=== PATIENT | female | born 1965 | race Caucasian/White ===

== ENCOUNTER 2024-05-07 14:09 | Emergency (ER) | payer OTHER, SELFPAY ==
[2024-05-07 14:10] VITALS: BP 173/86; PULSE 95; RESP 18; TEMP 36.9; O2SAT 96; BMI 49.5
--- NOTE | 2024-05-07 14:16 | EKG12_ITS ---
Test Reason : SOB Blood Pressure : */* mmHG Vent. Rate : 92 BPM Atrial Rate : 92 BPM P-R Int : 182 ms QRS Dur : 160 ms QT Int : 416 ms P-R-T Axes : 37 -24 137 degrees QTcB Int : 514 ms Normal sinus rhythm Non-specific intra-ventricular conduction block Minimal voltage criteria for LVH, may be normal variant ( Tc product ) Cannot rule out Lateral infarct , age undetermined Cannot rule out Inferior infarct , age undetermined Abnormal ECG Confirmed by Carlos Armenta ([id number]), purchase request editor ARNULFO HERNANDEZ ([id number]) on 05/08/2024 1:22:37 PM Referred By: Dean Jara Confirmed By: Carlos Armenta
[2024-05-07 14:36] LABS: Absolute Lymphocyte Count 1.73 X10^3/uL (0.83-4.51); Basophil% 0.8 % (0-1); Eosinophil# 0.21 X10^3/uL; Eosinophils% 1.8 % (0-5); Hematocrit 46.3 % (37-47); Hemoglobin 14.7 g/dL (12.0-15.0); Lymphocyte # 1.73 X10^3/ul (0.83-4.51); Lymphocyte % 14.5 % (19-41); Mean Corp Hgb Conc 31.7 g/dL (32-36); Mean Corpuscular Hgb 29.8 pg (27.0-32.0); Mean Corpuscular Volume 93.9 fL (81-99); Monocyte# 0.86 X10^3/uL; Monocyte% 7.2 % (0-10); NRBC Flagged by Analyzer 0 % (0-5); Neutrophil # 8.98 X10^3/uL (2.7-7.7); Neutrophil % 75.3 % (47-70); POSITIVE COUNT YES; RBC Distribution Width CV 14.3 % (11.6-14.6); RBC Distribution Width SD 48.7 fl (35.1-43.9); Red Blood Count 4.93 M/mm3 (4.2-5.4); White Blood Count 11.9 K/mm3 (4.4-11.0)
--- NOTE | 2024-05-07 14:50 | RAD_ITS ---
STUDY: X-RAY CHEST REASON FOR EXAM: Female, 58 years old. Shortness of breath TECHNIQUE: Single AP portable view of the chest. COMPARISON: None. FINDINGS: Lungs are expanded with superimposed interstitial edema and small pleural effusions. Findings due to either pulmonary vascular congestion or inflammatory process. Follow-up recommended to assure complete resolution Normal size heart. Normal mediastinum and kasia. Normal visualized pulmonary arteries. Normal visualized aortic arch and descending thoracic aorta. There are diffuse degenerative changes of the visualized thoracic spine. Normal visualized ribs, clavicles, and shoulders. There is no demonstrated abnormality of the visualized soft tissue structures of the upper abdomen. RAD/Chest 1 View (Portable) IMPRESSION: Interstitial edema in the lower lung lee with small bilateral pleural effusions suggest pulmonary vascular congestion but findings could also be due to a diffuse inflammatory process. Follow-up recommended to assure resolution Electronically Signed: Benji Pappas MD at 15:01 EST ,
[2024-05-07 14:54] LABS: Anion Gap 4 (5-15); BUN 16 mg/dL (7-18); BUN/Creat Ratio 14.8 RATIO (10-20); Chloride 110 mmol/L (98-107); Creatinine, Serum 1.08 mg/dL (0.55-1.02); EST Glomerular Filtration Rate 55 mL/min (>60); Est Glom Filt Rate - Afr Amer 66 mL/min (>60); Estimated Creatinine Clearance 74.51 ml/min; Glucose 103 mg/dL (74-106); Potassium 4.5 mmol/L (3.5-5.1); Sodium Level 137 mmol/L (136-145); Troponin-I HS 37 pg/mL (3.0-54.0)
[2024-05-07 15:05] LABS: Differential Indicated SCAN CRITERIA MET
[2024-05-07 15:06] LABS: Platelet Estimate ADEQUATE (ADEQ)
[2024-05-07 15:42] VITALS: O2SAT 98
--- NOTE | 2024-05-07 15:45 | EDS_ITS ---
HPI History of Present Illness Chief Complaint: Shortness of Breath Informant: patient Narrative Narrative: 58-year-old female has been having dyspnea with exertion for the past 4 to 5 weeks. It was worse last night with lying down, so she went to urgent care [facility] to be evaluated for this for the first time, and they sent her to the ER out of concern she may be having congestive heart failure. She does not have a history of that that she knows of. With walking up stairs and light exertion she has been having dyspnea without chest discomfort, it is better with resting. She has had no presyncope or syncope. No palpitations, diaphoresis, GI symptoms, no cough or fevers. She states that the [facility] they were concerned about her having edema in her legs but she has not been noticing that. No known history of heart or lung problems she takes no prescriptions, she used to see Dr. Stinson but he apparently retired 3 to 4 months ago and she does not have a new PCP yet. PFSH PFS Medical History no medical history no medical history Home Medications ?Medication ?Instructions ?Recorded ?Last Taken ?Type carvedilol 6.25 mg tablet (Coreg) 6.25 mg PO BID #60 tabs 05/07/24 Unknown Rx furosemide 40 mg tablet 40 mg PO .qam #30 tabs 05/07/24 Unknown Rx losartan 25 mg tablet 25 mg PO QHS #30 tabs 05/07/24 Unknown Rx Allergy/AdvReac Type Severity Reaction Status Date / Time No Known Allergies Allergy Verified 05/07/24 14:10 Social History Smoking Status: Never smoker ROS ROS ED Constitutional Constitutional ED: Denies chills or fever(s) Eyes Eyes: Denies change in vision or diplopia ENT ENT ED: Denies rhinorrhea or sore throat Cardiovascular Cardiovascular: Reports as per HPI, leg edema and orthopnea; Denies chest pain, lightheadedness, palpitations, radiating jaw, neck or arm pain or syncope Respiratory/Chest Respiratory/Chest: Reports dyspnea on exertion and orthopnea; Denies cough Gastrointestinal Gastrointestinal: Denies abdominal pain, diarrhea, nausea or vomiting Genitourinary Genitourinary ED: Denies dysuria or hematuria Musculoskeletal Musculoskeletal: Denies back pain or neck pain Integumentary Denies abscess or rash Neurologic Neurologic: Denies headache(s), paresthesias or weakness Psychiatric Psychiatric: Denies anxiety or suicidal thoughts EXAM Physical Exam Const Vital Signs: 05/07/24 14:10 05/07/24 15:42 05/07/24 15:42 Temperature 98.5 F Temperature Source Oral Pulse Rate 95 Respiratory Rate 18 Blood Pressure 173/86 H Blood Pressure Mean 115 Pulse Ox 96 98 98 Oxygen Delivery Method Room Air Room Air Room Air 05/07/24 16:10 05/07/24 16:15 Temperature Temperature Source Pulse Rate 83 84 Respiratory Rate 17 28 H Blood Pressure 152/76 H 152/76 H Blood Pressure Mean 101 101 Pulse Ox 94 94 Oxygen Delivery Method Room Air Room Air Positive well nourished, well developed and obese General Appearance ED: well developed and NAD Nutritional Appearance: obese HEENT Reports moist mucous membranes normocephalic and atraumatic Eyes PERRL and EOMs intact bilaterally Neck full ROM and supple Resp normal respiratory effort Resp Narrative: Mild bibasilar rhonchi otherwise clear Effort and Inspection: able to speak in complete sentences Cardio regular rate, regular rhythm and no murmurs Rate: Negative for bradycardia or tachycardic GI non-tender and non-distended Auscultation: normoactive bowel sounds Palpation: soft Back/Spine no CVA tenderness General Back: other FROM Extremity normal to inspection General Extremety ED: Yes edema; Negative for pulses abnormal or tenderness General Extremity: edema bilateral lower extremity Details: mild (To proximal tibia bilaterally, symmetric no signs of infection or tenderness); Negative for pulses abnormal Neuro oriented x3, CN's II-XII intact bilaterally and no sensory deficits noted Sensorium / Orientation: awake and alert Motor Exam: strength 5/5 throughout Skin no rashes or lesions noted and no wounds MDM MDM MDM Narrative Medical decision making narrative: Two-view chest x-ray my interpretation is consistent with some mild pulmonary edema, vascular congestion. Radiology in agreement. The rest of her workup is consistent with acute congestive heart failure, there is no evidence of acute coronary syndrome, she does have a left middle branch block with no evidence of an old EKG here. I discussed all this with cardiology because the patient prefers to go home if possible rather than be admitted. Discussed with Dr. Armenta will try to get her into the office soon, I think that is reasonable since she does not have a PCP right now. Family is comfortable with that, he recommend starting her on losartan, Lasix, carvedilol, so she is written prescriptions for those. She is doing better after the Lasix and her blood pressure is down. Lab Data Attestation: I reviewed the patient's lab results. Labs: Laboratory Results - last 24 hr 05/07/24 14:25 WBC 11.9 H RBC 4.93 Hgb 14.7 Hct 46.3 MCV 93.9 MCH 29.8 MCHC 31.7 L RDW Std Deviation 48.7 H RDW Coeff of Morris 14.3 Plt Count TNP MPV 11.0 Immature Gran % (Auto) 0.400 Neut % (Auto) 75.3 H Lymph % (Auto) 14.5 L Angelina % (Auto) 7.2 Eos % (Auto) 1.8 Baso % (Auto) 0.8 Absolute Neuts (auto) 9.0 H Absolute Lymphs (auto) 1.73 Nucleated RBC % 0 Platelet Estimate ADEQUATE Sodium 137 Potassium 4.5 Chloride 110 H Carbon Dioxide 23.0 Anion Gap 4 L BUN 16 Creatinine 1.08 H Estim Creat Clear Calc 74.51 Est GFR (MDRD) Af Amer 66 Est GFR (MDRD) Non-Af 55 L BUN/Creatinine Ratio 14.8 Glucose 103 Calcium 9.0 Troponin I High Sens 37 B-Natriuretic Peptide 206.3 H Radiography Diagnostic Testing: Clinical Impression(s) from Imaging Studies Chest X-Ray 05/07/24 14:50 IMPRESSION: Interstitial edema in the lower lung lee with small bilateral pleural effusions suggest pulmonary vascular congestion but findings could also be due to a diffuse inflammatory process. 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 Discharge Plan Triage Chief Complaint: Shortness of Breath ED Provider: Daen Jara Dx/Rx/DC Orders Clinical Impression: Acute CHF Instructions: ED Heart Failure, Congestive (CHF) Prescriptions: New carvedilol [Coreg] 6.25 mg tablet 6.25 mg PO BID Qty: 60 0RF Rx Instructions: must administer with a meal/food losartan 25 mg tablet 25 mg PO QHS Qty: 30 0RF furosemide 40 mg tablet 40 mg PO .qam Qty: 30 0RF Primary Care Provider: NOT,DEFINED Referrals: Carlos Armenta MD [Med Staff - Active Staff] - As soon as possible () Activity Restrictions/Additional Instructions: Call for appointment next week if you do not hear anything from the office by tomorrow or the next morning. Print Language: Hungarian Disposition Disposition: Home, Self Care
[2024-05-07] MEDS: Furosemide 40 MG/4 ML Vial IV (15:53)
[2024-05-07 16:10] VITALS: BP 152/76; PULSE 83; RESP 17; O2SAT 94
[2024-05-07 16:15] VITALS: BP 152/76; PULSE 84; RESP 28; O2SAT 94
[2024-05-07 16:50] LABS: BNP,B-Type NATRIURETIC PEPTIDE 206.3 pg/mL (0-100)
[2024-05-07 17:17] VITALS: O2SAT 94
== END 2024-05-07 17:33 | disposition home or self-care (01) ==
PROVIDERS: Emergency Provider Emergency Medicine; Referring Provider Emergency Medicine; Visit Provider Emergency Medicine
DX: R06.02 Shortness of breath (principal); I50.9 Heart failure, unspecified
CPT/HCPCS: 71045; 80048; 83880; 84484; 85025; 93005; 94760; 96374; 99282; A4216; J1940

== ENCOUNTER → 2024-05-10 | Outpatient (CLI) | payer SELFPAY, OTHER ==
--- NOTE | 2024-05-10 08:45 | ECHOD_ITS ---
Reason For Study: SHORTNESS OF BREATH Procedure This was a 2D Doppler, Color Flow transthoracic echocardiogram. Myocardial strain analysis was performed in this exam to aid in the assessment of cardiac function. Exam performed in department. Left Ventricle Mildly dilated left ventricle. The global longitudinal strain = -10.2% (abnormal). The estimated ejection fraction is 25 %. Stage 2 diastolic dysfunction. There is severe global hypokinesis of the left ventricle. Right Ventricle Normal RV size. Normal systolic function. Atria The left atrium is mildly enlarged. Normal right atrium. No doppler evidence for ASD. Mitral Valve There is no mitral valve stenosis. Mild-Moderate (1-2+) mitral valve insufficiency. Tricuspid Valve There is no tricuspid stenosis. Trivial tricuspid valve insufficiency. Unable to estimate RV systolic pressure due to insufficient tricuspid regurgitant envelope. Aortic Valve Trisinus/trileaflet aortic valve. There is no aortic stenosis. No aortic valve insufficiency. Pulmonic Valve There is no pulmonic valvular stenosis. Trivial pulmonic valve insufficiency. Great Vessels Normal aortic root. Pericardium/Pleural No pericardial effusion. MMode/2D Measurements & Calculations LVIDd: 6.5 cm IVSd: 1.1 cm LVOT diam: 2.2 cm LVIDs: 5.4 cm LVPWd: 1.1 cm LVOT area: 3.8 cm2 RVDd: 4.3 cm FS: 17.0 % asc Aorta Diam: 3.5 cm LAV(MOD-bp): 84.3 ml EDV(MOD-sp4): 157.2 ml LAV(MOD-bp) Indexed: 37.0 ml/m2 ESV(MOD-sp4): 113.7 ml LAV(MOD-sp2): 116.7 ml EF(MOD-sp4): 27.6 % LAV(MOD-sp4): 60.5 ml EDV(MOD-sp2): 159.1 ml SV(MOD-sp4): 43.4 ml SV(MOD-sp2): 39.8 ml ESV(MOD-sp2): 119.3 ml EF(MOD-sp2): 25.0 % SI(MOD-sp4): 19.0 ml/m2 SI(MOD-sp2): 17.5 ml/m2 Ao sinus diam: 3.[address] Junction: 2.8 cm LA A4 area: 20.8 cm2 LA dimension(2D): 4.3 cm TAPSE: 2.0 cm RA A4 area: 18.2 cm2 Time Measurements MV dec time: 0.19 sec Doppler Measurements & Calculations MV E max neal: 89.6 cm/sec Lat Peak E' Neal: 5.3 cm/sec Med Peak E' Neal: 6.3 cm/sec MV A max neal: 101.8 cm/sec E/E' lat: 17.0 E/E' med: 14.2 MV E/A: 0.88 MV dec slope: 480.9 cm/sec2 Ao V2 max: 119.2 cm/sec LV V1 max: 105.7 cm/sec Ao max P.7 mmHg LV V1 max P.5 mmHg Ao V2 mean: 86.1 cm/sec LV V1 mean P.9 mmHg Ao mean P.3 mmHg LV V1 mean: 83.5 cm/sec Ao V2 VTI: 26.3 cm LV V1 VTI: 20.3 cm AV (velocity ratio): 0.77 ABRAHAN(I,D): 2.9 cm2 ABRAHAN(V,D): 3.3 cm2 SV(LVOT): 76.1 ml PA V2 max: 70.1 cm/sec ECHO/Echo Complete Interpretation Summary The estimated ejection fraction is 25 %. Stage 2 diastolic dysfunction. There is severe global hypokinesis of the left ventricle. The left atrium is mildly enlarged. Mild-Moderate (1-2+) mitral valve insufficiency. Ordering Physician: Dorothy Trejo Referring Physician: HUMAIRA GRULLON Performed By: Fany Marcos RDCS
== END | disposition home or self-care (01) ==
LOC: CVS 08:44
PROVIDERS: PCP Physician Assistant; Referring Provider Physician Assistant Medical; Visit Provider Physician Assistant Medical
DX: I50.9 Heart failure, unspecified (principal); I51.7 Cardiomegaly
CPT/HCPCS: 93306

== ENCOUNTER → 2024-05-14 | Outpatient (CLI) | payer OTHER, SELFPAY ==
[2024-05-14 14:30] LABS: Anion Gap 4 (5-15); BUN 22 mg/dL (7-18); BUN/Creat Ratio 17.5 RATIO (10-20); Chloride 104 mmol/L (98-107); Creatinine, Serum 1.26 mg/dL (0.55-1.02); EST Glomerular Filtration Rate 46 mL/min (>60); Est Glom Filt Rate - Afr Amer 56 mL/min (>60); Glucose 107 mg/dL (74-106); Sodium Level 140 mmol/L (136-145)
[2024-05-14 14:31] LABS: BNP,B-Type NATRIURETIC PEPTIDE 91.4 pg/mL (0-100)
== END | disposition home or self-care (01) ==
LOC: LAB 13:38
PROVIDERS: PCP Physician Assistant; Referring Provider Internal Medicine Cardiovascular Disease; Visit Provider Internal Medicine Cardiovascular Disease
DX: I50.9 Heart failure, unspecified (principal)

== ENCOUNTER → 2024-06-21 | Outpatient (CLI) | payer OTHER, SELFPAY ==
[2024-06-21 09:25] LABS: Anion Gap 4 (5-15); BUN 21 mg/dL (7-18); BUN/Creat Ratio 24.8 RATIO (10-20); Calcium,Total 9.4 mg/dL (8.5-10.1); Chloride 108 mmol/L (98-107); Cholesterol 173 mg/dL (200); Creatinine, Serum 0.85 mg/dL (0.55-1.02); EST Glomerular Filtration Rate 73 mL/min (>60); Est Glom Filt Rate - Afr Amer 88 mL/min (>60); Glucose 90 mg/dL (74-106); High Density Lipoprotein 50 mg/dL; Potassium 4.3 mmol/L (3.5-5.1); Sodium Level 140 mmol/L (136-145); Triglycerides 114 mg/dL; Very Low Density Lipoprotein 23 mg/dL (5-40)
== END | disposition home or self-care (01) ==
LOC: LAB 07:54
PROVIDERS: PCP Physician Assistant; Referring Provider Internal Medicine Cardiovascular Disease; Visit Provider Internal Medicine Cardiovascular Disease
DX: I50.9 Heart failure, unspecified (principal)
CPT/HCPCS: 36415; 80048; 80061

== ENCOUNTER → 2024-08-23 | Outpatient (CLI) | payer SELFPAY, OTHER ==
--- NOTE | 2024-08-23 07:48 | ECHOL_ITS ---
Reason For Study Reason For Study: Assess LV function Procedure This was a limited 2D transthoracic echocardiogram. Exam performed in department. Left Ventricle Mildly dilated left ventricle. The left ventricular ejection fraction is 45 %. There is mild to moderate global hypokinesis of the left ventricle. Right Ventricle Normal RV size. Atria Normal left atrium. Normal right atrium. Mitral Valve Normal mitral valve. Tricuspid Valve Normal tricuspid valve. Aortic Valve Trisinus/trileaflet aortic valve. Pulmonic Valve Normal pulmonic valve. Great Vessels Normal aortic root. Pericardium/Pleural No pericardial effusion. MMode/2D Measurements & Calculations LVIDd: 6.2 cm IVSd: 1.0 cm LAV(MOD- bp): 69.5 ml LVIDs: 4.6 cm LVPWd: 1.0 cm LAV(MOD- bp) Indexed: 30.8 ml/m2 RVDd: 3.6 cm FS: 25.4 % LAV(MOD- sp2): 56.8 ml LAV(MOD- sp4): 77.3 ml SV(MOD- sp4): 64.2 ml LVAd ap4: 41.3 cm2 LVAd ap2: 45.4 cm2 LVLd ap4: 9.3 cm LVLd ap2: 9.5 cm SI(MOD- sp4): 28.5 ml/m2 EDV(MOD-sp4): 155.5 ml EDV(MOD-sp2): 182.7 ml EDV(sp4-el): 154.7 ml EDV(sp2-el): 185.0 ml LVAs ap4: 30.6 cm2 LVAs ap2: 32.4 cm2 LVLs ap4: 8.6 cm LVLs ap2: 8.7 cm ESV(MOD-sp4): 91.3 ml ESV(MOD-sp2): 98.6 ml ESV(sp4-el): 91.9 ml ESV(sp2-el): 102.0 ml EF(MOD-sp4): 41.3 % EF(MOD-sp2): 46.0 % EF(sp4-el): 40.6 % SV(MOD-sp2): 84.1 ml SV(sp4-el): 62.8 ml LA A4 area: 22.0 cm2 SI(MOD-sp2): 37.3 ml/m2 LA dimension(2D): 3.8 cm RA A4 area: 15.0 cm2 ECHO/Echo, Limited Study Interpretation Summary Mildly dilated left ventricle. The left ventricular ejection fraction is 45 %. There is mild to moderate global hypokinesis of the left ventricle. Compared to previous study, the left ventricular systolic function has improved .. Ordering Physician: Carlos Amrenta Referring Physician: Washington Vincent Performed By: Glo Lora RDCS
[2024-08-23 12:13] LABS: Anion Gap 10 (5-15); BUN 17 mg/dL (4-19); Calcium,Total 8.6 mg/dL (7.6-11.0); Carbon Dioxide 23.9 mmol/L (21.0-32.0); Chloride 104 mmol/L (98-108); Creatinine, Serum 0.93 mg/dL (0.70-1.20); EST Glomerular Filtration Rate 70 (>60); Glucose 91 mg/dL (70-99); Potassium 4.6 mmol/L (3.3-5.1); Sodium Level 138 mmol/L (133-145)
== END | disposition home or self-care (01) ==
PROVIDERS: PCP Physician Assistant; Referring Provider Internal Medicine Cardiovascular Disease; Visit Provider Internal Medicine Cardiovascular Disease
DX: I50.41 Acute combined systolic (congestive) and diastolic (congestive) heart failure (principal)
CPT/HCPCS: 36415; 80048; 93308

== ENCOUNTER 2025-01-03 06:51 | Outpatient (CLI) | payer SELFPAY, OTHER ==
--- OUTSIDE RECORDS SUMMARY | 2025-01-03 06:54 | XMS RPT_ITS | CCD ---
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 Name Role Phone Mitchel MARTINES, Luke E Unavailable Mitchel PA-C, Luke E Unavailable Unavailable Unavailable Edwar Adams LPN Unavailable Unavailable UBALDO Attending Unavailable Lissy Snyder LPN Unavailable NATALIYA GRULLONKE E Consulting Unavailable SHAMIR PORTILLO MD Admitting Unavailable SHAMIR PORTILLO MD Primary Care Unavailable SHAMIR PORTILLO MD Attending Unavailable PROVIDER, UNKNOWN Consulting Unavailable NIRMALA ARMENTA MD Attending Unavailable MITCHEL, LUKE E Consulting Unavailable NIRMALA ARMENTA MD Admitting Unavailable NIRMALA ARMENTA MD Primary Care Unavailable PROVIDER, UNKNOWN Consulting Unavailable Mei Cali MA Unavailable Unavailable Washington Duarte Primary Care Provider Dr. Nirmala Armenta MD Attending Provider Dr. Nirmala Armenta MD Referring Provider Washington Duarte Primary Care Provider Dr. Ben Salter MD Attending Provider Washington Duarte Referring Provider Dorothy Nettles Attending Provider Mitchel, Luke Referring Unavailable Mitchel, Luke Primary Care Unavailable Nirmala Armenta Attending Unavailable Mitchel, Luke Primary Care Unavailable Ben Salter Attending Unavailable Saturnino Salinas Attending Unavailable Mitchel, Luke Referring Unavailable Mitchel, Luke Primary Care Unavailable Nirmala Armenta Attending Unavailable Mitchel, Luke Referring Unavailable Dorothy Nettles Attending Unavail able Mitchel, Luke Primary Care Unavailable Mitchel, Luke Primary Care Unavailable Nirmala Armenta Referring Unavailable Nirmala Armenta Attending Unavailable Dorothy Nettles Attending Unavail able Dorothy Nettles Referring Unavail able Mitchel, Luke Primary Care Unavailable NOT, DEFINED Referring Unavailable Nirmala Armenta Attending Unavailable Mitchel, Luke Primary Care Unavailable Mitchel, Luke Primary Care Unavailable Rickie Sanford Attending Unavailabl e Mitchel, Luke Primary Care Unavailable Nirmala Armenta Attending Unavailable Nirmala Armenta Referring Unavailable Nirmala Armenta Attending Unavailable Nirmala Armenta Referring Unavailable Mitchel, Luke Primary Care Unavailable Mitchel, Luke Primary Care Unavailable Dorothy Nettles Attending Unavail able Dorothy Nettles Referring Unavail Dean Roldan Attending Unavailable Dean Jara Referring Unavailable NOT, DEFINED Primary Care Unavailable Medications Current Medications Medication Drug Class(es) Dates Sig (Normalized) Sig (Original) benzonatate 100 mg oral capsule (2 sources) Non-narcotic Antitussive Start: 08-03-2024 benzonatate 100 mg capsule ; 1 (one) capsule TID PRN cough for 0 days Quantity: 30 {Capsule} Refills: 0 Ordered: 03-Aug-2024 BOBBI Grullon Start: 03-Aug-2024 carvedilol 12.5 mg oral tablet (9 sources) alpha-Adrenergic Naima, beta-Adrenergic Naima Start: 05-14-2024 take 1 tablet by mouth twice daily at mealtime Carvedilol 12.5 mg tablet Active 12.5 mg PO TWICE A DAY 180 May 14, 2024 2:11pm must administer with a meal/food Start: 05-07-2024 End: 05-14-2024 take 1 tablet by mouth twice daily at mealtime Carvedilol (Coreg) 6.25 mg tablet Discontinued 6.25 mg PO TWICE A DAY 60 0 May 07, 2024 1:00am May 14, 2024 2:13pm must administer with a meal/food furosemide 20 mg oral tablet (11 sources) Loop Diuretic Start: 06-21-2024 End: 08-23-2024 take 1 tablet by mouth once daily in the morning Furosemide 20 mg tablet Active 20 mg PO EVERY MORNING August 23, 2024 9:48am Start: 06-21-2024 End: 06-21-2024 Furosemide 40 mg tablet Disc ontinued 20 mg PO .qam June 21, 2024 9:31am June 21, 2024 9:50am Start: 05-07-2024 End: 06-21-2024 take 1 tablet by mouth once daily in the morning Furosemide 40 mg tablet Discontinued 40 mg PO .qam 30 May 07, 2024 1:00am June 21, 2024 9:32am losartan potassium 100 mg oral tablet (10 sources) Angiotensin 2 Receptor Naima Start: 06-21-2024 take 1 tablet by mouth once daily Losartan 100 mg tablet Active 100 mg PO daily 90 June 21, 2024 1:00am Start: 05-14-2024 End: 06-21-2024 take 1 tablet by mouth at bedtime Losartan 50 mg tablet Discontinued 50 mg PO AT BEDTIME 90 May 14, 2024 2:12pm June 21, 2024 9:49am Start: 05-07-2024 End: 05-14-2024 take 1 tablet by mouth at bedtime Losartan 25 mg tablet Discontinued 25 mg PO AT BEDTIME 30 May 07, 2024 1:00am May 14, 2024 2:13pm spironolactone 25 mg oral tablet (1 source) Aldosterone Antagonist Start: 06-21-2024 take 1 tablet by mouth once daily in the morning Spironolactone 25 mg tablet Active 25 mg PO EVERY MORNING 90 June 21, 2024 1:00am Completed/Discontinued Medications Medication Drug Class(es) Dates Sig (Normalized) Sig (Original) cephalexin 500 mg oral capsule (7 sources) Cephalosporin Antibacterial Start: 05-18-2024 End: 05-25-2024 cephALEXin 500 mg capsule ; 1 (one) capsule four times daily for 7 days Quantity: 28 {Capsule} Refills: 0 Ordered: 18-May-2024 BOBBI Grullon Start: 18-May-2024 End: 25-May-2024 Status: Inactive Problems Active Problems Problem Classification Problem Date Documented Da te Episodic/Chronic Conduction disorders (5 sources) Left bundle branch block; Translations: [Left bundle-branch block, unspecified] Onset: 11-29-2024 11-29-2024 Chronic Congestive heart failure; nonhypertensive (12 sources) Congestive heart failure; Translations: [Heart failure, unspecified] Onset: 07-05-2024 05-18-2024 Chronic Essential hypertension (12 sources) Hypertensive disorder; Translations: [Essential (primary) hypertension] Onset: 11-29-2024 05-18-2024 Chronic Other aftercare (8 sources) Removal of sutures done; Translations: [Encounter for removal of sutures] 06-28-2024 Episodic Other lower respiratory disease (4 sources) Persistent cough; Translations: [Cough] 08-03-2024 Episodic Other skin disorders (19 sources) Cyst of skin; Translations: [Follicular cyst of the skin and subcutaneous tissue, unspecified] 05-18-2024 Episodic Janeth-; endo-; and myocarditis; cardiomyopathy (except that caused by tuberculosis or sexually transmitted disease) (4 sources) Cardiomyopathy; Translations: [Cardiomyopathy, unspecified] Onset: 11-29-2024 11-29-2024 Chronic Unclassified (7 sources) Number of Children 05-18-2024 Comment on above: 4. Past or Other Problems Problem Classification Problem Date Documented Date Episodic/Chronic Other lower respiratory disease (1 source) Shortness of breath; Translations: [Shortness of breath] Onset: 05-31-2024 Episodic Unclassified (1 source) Skin lesion - The skin lesion appeared gradually and has been occurring for 1 month. It has been increasing in size. The lesion is characterized as red, weeping and raised above the skin. The lesion is located on the neck (left side). Note for Skin lesion: pt says she thinks shes had a pimple in the same areayesterday pt says this did open up and it was green/brown color and smell 05-18-2024 Unclassified (6 sources) Skin lesion - The skin lesion appeared gradually and has been occurring for 1 month. It has been increasing in size. The lesion is characterized as red, weeping and raised above the skin. The lesion is located on the neck (left side). Note for Skin lesion: Patient states that she first noticed a pimple at the area of concern approximately 1 year ago and that it seemed to increase in size over the past month. She states that yesterday she began to squeeze it and it opened. She notes green/brown colored discharge that was foul smelling. Patient notes only mild pain of the lesion. 05-18-2024 Unclassified (5 sources) cyst - Patient seen in office 05/18/24 for infected cyst on left side of neck, at that time patient was given cephalexin for treatment which she completed since OV. Patient notes good improvement of discomfort and fever after completing antibiotic, she presents today for removal of the cyst. 2024 Unclassified (2 sources) Cough - The cough has been occurring for 3 weeks. The course has been constant. The cough is characterized as productive of mucoid sputum. There is no sputum production. The cough occurs mostly in the energy broker. Associated symptoms include nasal congestion and runny nose, while there is no chest pain, fever, headache, night sweats, sore throat or wheezing. Note for Cough: Patient states she was not able to complete her sleep study last night due to coughing and the network operations technician stating that her lungs sounded wet and crackly on auscultation. Patient states she feels as though her cough has been improving, she denies symptoms of orthopnea, lower extremity edema, SOB, dyspnea, and chest pain. 08-03-2024 NEGATED: Highlighted row has been ruled out!Unclassified (1 source) No Problem Information Available Results Test Name Value Interpretation Reference Range Facil [facility] Cardiology Visit Reporton Cardiology Visit Report [facility] [address] [place] [address]. [address] [place] [address] OFFICE VISIT Date of Service: 11/29/24 MR#: [id number] Acct: [id number] Name: MICHAEL DALTON ANN Rep #: [id number] : 1965 Provider: KADY Lindsey Age/Sex: 59/F [place] [facility] [place] Status: Signed HPI HPI History of Present Illness Details: Patient comes in today is a very pleasant 59-year-old white female for monitoring of her cardiovascular status. Patient was originally diagnosed in May 2024 with a heart failure with reduced ejection fraction. EF was 25% she has a left bundle branch block history of hypertension and mild kidney disease. The patient reports that she continues to be active in her home environment she did her spring cleaning with only assistance from her family being to help clean the ceilings in the house. She denies any PND orthopnea denies any lower extremity edema. All of this is completely resolved. Echocardiogram was done today preliminarily the EF shows that it is recovered with guideline directed medical therapy to 40%. HR at home is in the 50s. She does not have any worsening SOB. She does not have any chest pain. She does not have any palpitations that she is aware of. Intake Vital Signs 08/23/24 09:47 11/29/24 08:35 Height 5 ft 4 in 5 ft 4 in Weight: 266 lb 263 lb BMI 45.6 45.1 BP 142/78 H 110/55 L Blood Pressure Location Lt brachial Lt brachial Position Sitting Sitting Respiration 18 18 Pulse 58 L 46 L Pulse Source Monitor NIBP Pulse Oximetry (%) 93 96 Oxygen Delivery Method room air room air Intake Visit Reasons: 3 M FU Medical Review Coordinator Required: No Accompanied by: Is patient in pain?: No Allergies No Known Allergies Allergy (Verified 11/29/24 08:51) Medications ???Medication ???Instructions ???Recorded ???Confirmed ???Type carvedilol 12.5 mg tablet 12.5 mg PO BID #180 tabs 05/14/24 11/29/24 Rx losartan 100 mg tablet 100 mg PO QDAY #90 tabs 06/21/24 0 11/29/24 Rx spironolactone 25 mg tablet 25 mg PO QAM #90 tabs 06/21/24 Rx furosemide 20 mg tablet 20 mg PO QAM 08/23/24 11/29/24 His tory Ejection fraction %: 25 Have you fallen in the past year?: Yes (Trip and fall) [facility] Medical History (Updated 11/29/24 @ 09:12 by Dorothy HILLMAN, PA) Cardiomyopathy LBBB (left bundle branch block) Hypertension Congestive heart failure Acute CHF Family History Father Myocardial infarction Hypertension Grandmother Heart disease Mother Hypertension Social History Smoking Status: Never smoker alcohol intake: never substance use type: does not use caffeine: Yes ROS Const Const: Negative for fatigue or weakness Eyes Eyes: Negative for change in vision ENT ENT: Negative for dizziness or balance problems Cardio Chest Pain: No Palpitations: No Edema: Bilateral (Mild but ncreased in the heat and humidity) Resp Respiratory: Negative for SOB with activity, SOB at rest or SOB orthopnea SOB lying down GI GI: Negative nausea or heartburn Musc Musc: Negative for balance problems Neuro Neuro: Negative for dizziness, lightheadedness, near syncope, syncope or weakness Endo Endo: Negative for fatigue Cardiology Exam Const Appearance: cooperative, comfortable and no acute distress Nutritional Appearance: obese Head Head: normal to inspection Eyes General: appearance normal, both eyes and all related structures Neck Neck: normal visual inspection and no JVD Carotids: Negative bruit Chest Chest inspection: normal inspection of the chest Auscultation: Bilateral: Clear to Auscultation Cardio Rate: regular rate Rhythm: regular rhythm Heart sounds: S1 normal and S2 normal; Negative rub, gallop or murmur Distant heart tones due to body habitus GI GI: obese Neuro General: patient alert and patient oriented x3 Extremities Lower Extremity Edema: None: Bilateral Psych Psychological: normal affect Supplemental Info Supplemental Information Echocardiogram 05/10/2024 Interpretation Summary The estimated ejection fraction is 25 %. Stage 2 diastolic dysfunction. There is severe global hypokinesis of the left ventricle. The left atrium is mildly enlarged. Mild-Moderate (1-2+) mitral valve insufficiency. Echo, Limited Study 07/2024 Interpretation Summary Mildly dilated left ventricle. The left ventricular ejection fraction is 45 %. There is mild to moderate global hypokinesis of the left ventricle. Compared to previous study, the left ventricular systolic function has improved.. Assessment and Plan Assessment and Plan (1) LBBB (left bundle branch block): Status: Acute Plan: Patient has a chronic lef (more content not included)... Normal [facility] Anion gap in Serum or Plasma Ordered By: Nirmala Armenta on 08-23-2024 Anion gap [Moles/Vol] 10 mmol/L - [facility] BUN/creatinine ratioOrdered By: Nirmala Armenta on 08-23-2024 Urea nitrogen/Creatinine [Mass ratio] 18.0 mg/mg 02-18 [facility] Basic Metabolic Profile (BMP )on 08-23-2024 BUN/CRE 18.0 RATIO Normal 02-18 [facility] Comment on above: Performed By: #### L 500.2500 #### [facility] [address] [place], [address] Calcium [Mass/Vol] 8.6 mg/dL Normal 7.6-11.0 [facility] Comment on above: Performed By: #### L 500.2500 #### [facility] [address] [place], [address] Chloride [Moles/Vol] 104 mmol/L Normal 98-108 [facility] Comment on above: Performed By: #### L 500.2500 #### [facility] [address] [place], [address] CO2 [Moles/Vol] 23.9 mmol/L Normal 21.0-32.0 [facility] Comment on above: Performed By: #### L 500.2500 #### [facility] [address] [place], [address] Creatinine [Mass/Vol] 0.93 mg/dL Normal 0.70-1.20 [facility] Comment on above: Performed By: #### L 500.2500 #### [facility] [address] [place], [address] GAP 10 Normal 5-15 [facility] Comment on above: Performed By: #### L 500.2500 #### [facility] [address] [place], [address] GFR/1.73 sq M.predicted among non-blacks MDRD (S/P/Bld) [Vol rate/Area] 70 mL/min/{1.73_m2} Normal >60 [facility] Comment on above: Result Comment: mL/m in/1.73m2 CKD-EPI Creatinine Equation (2020) Performed By: #### L 500.2500 #### [facility] [address] [place], [address] Glucose [Mass/Vol] 91 mg/dL Normal 70-99 [facility] Comment on above: Performed By: #### L 500.2500 #### [facility] [address] [place], [address] Potassium [Moles/Vol] 4.6 mmol/L Normal 3.3-5.1 [facility] Comment on above: Performed By: #### L 500.2500 #### [facility] [address] [place], [address] Sodium [Moles/Vol] 138 mmol/L Normal 133-145 [facility] Comment on above: Performed By: #### L 500.2500 #### [facility] [address] [place], [address] Urea nitrogen [Mass/Vol] 17 mg/dL Normal 4-19 [facility] Comment on above: Performed By: #### L 500.2500 #### [facility] [address] [place], [address] Carbon dioxide, total [Moles /volume] in Central venous bloodOrdered By: Nirmala Armenta on 08-23-2024 CO2 [Moles/Vol] 23.9 mmol/L 21.0-32.0 [facility] Cardiology Visit Reporton Cardiology Visit Report [facility] [address] [place], [place] [address] OFFICE VISIT Date of Service: 08/23/24 MR#: [id number] Acct: [id number] Name: MICHAEL DALTON ANN Rep #: [id number] : 1965 Provider: Dr. Nirmala tucker MD Age/Sex: 59/F Location: [facility] [place] Status: Signed with Addenda ADDENDUM by Dr. Nirmala Armenta MD on 08/23/24 at 1613 Assessment and Plan Assessment and Plan (1) Congestive heart failure: Status: Acute Qualifiers: Heart failure type: combined systolic and diastolic Heart failure chronicity: acute Qualified Code(s): I50.41 - Acute combined systolic (congestive) and diastolic (congestive) heart failure Plan: Final report on the echocardiogram shows that her EF is calculated at 45%. She has mild global LV dysfunction. Given this recovery I feel this is highly unlikely to be ischemic in etiology. We will follow her up in 3 months in the office and make a final determination about further evaluation from an ischemic standpoint. (2) LBBB (left bundle branch block): Status: Acute (3) Hypertension: Status: Chronic Qualifiers: Hypertension type: primary hypertension Qualified Code(s): I10 - Essential (primary) hypertension Plan Details Follow Up: 3 Months (With REJI and as needed) 08/23/24 1613 Date Nirmala Armenta MD cc: KADY Hook * Signed HPI HPI History of Present Illness Details: Patient comes in today is a very pleasant 59-year-old white female for monitoring of her cardiovascular status. Patient was originally diagnosed in May 2024 with a heart failure with reduced ejection fraction. EF was 25% she has a left bundle branch block history of hypertension and mild kidney disease. The patient reports that she continues to be active in her home environment she did her spring cleaning with only assistance from her family being to help clean the ceilings in the house. She denies any PND orthopnea denies any lower extremity edema. All of this is completely resolved. Echocardiogram was done today preliminarily the EF shows that it is recovered with guideline directed medical therapy to 40%. The final report is pending. As best we can ascertain it appears that her LV dysfunction was probably related to hypertensive heart disease that was untreated or alternatively she had not a couple different pulmonary infections in the summer and fall 2023. She had global LV dysfunction on her previous echo. Patient does have a family history of late in life her father had an infarct, she is hypertensive, she is not hyperlipidemic she does not smoke and is not diabetic. We have not ruled out ischemia as the etiology as we were trying to get her maximally treated on guideline directed medical therapy before pursuing any type of functional testing. Intake Vital Signs 06/21/24 08:30 08/23/24 09:47 Height 5 ft 4 in 5 ft 4 in Weight: 279 lb 266 lb BMI 47.9 45.6 BP 163/90 H 142/78 H Blood Pressure Location Lt brachial Lt brachial Position Sitting Sitting Respiration 18 18 Pulse 64 58 L Pulse Source Monitor Monitor Pulse Oximetry (%) 94 93 Oxygen Delivery Method room air room air Intake Visit Reasons: 2 M FU Medical Review Coordinator Required: No Accompanied by: Self Is patient in pain?: No Allergies No Known Allergies Allergy (Verified 08/23/24 09:47) Medications ???Medication ???Instructions ???Recorded ???Confirmed ???Type carvedilol 12.5 mg tablet 12.5 mg PO BID #180 tabs 05/14/24 08/23/24 Rx losartan 100 mg tablet 100 mg PO QDAY #90 tabs 06/21/24 0 08/23/24 Rx spironolactone 25 mg tablet 25 mg PO QAM #90 tabs 06/21/24 Rx furosemide 20 mg tablet 20 mg PO QAM 08/23/24 History Have you fallen in the past year?: No PFSH Medical History Congestive heart failure Acute CHF Family History Father Myocardial infarction Hypertension Grandmother Heart disease Mother Hypertension Social History Smoking Status: Never smoker alcohol intake: never substance use type: does not use caffeine: Yes ROS Const Const: Negative for fatigue or weakness ENT ENT: Negative for dizziness or balance problems Cardio Chest Pain: No Palpitations: No Edema: Bilateral (minimal towards the end of the day) Muscle aches with walking: None Resp Respiratory: Negative for SOB with activity, SOB at rest or SOB orthopnea SOB lying down GI GI: Negative nausea, vomiting or heartburn Musc Musc: Negative for muscle weakness or balance problems Neuro Neuro: Negative for dizziness, lightheadedness, near syncope, syncope or weakness (more content not included)... Normal [facility] Chloride assayOrdered By: Hilda Armenta on 08-23-2024 Chloride [Moles/Vol] 104 mmol/L 98-108 [facility] Echo, Limited Studyon 2024 Echo, Limited Study [facility] [address] [place] [address] Echo, Limited Study 08/23/24 0753 MR#: [id number] Acct: [id number] Name: MICHAEL DALTON Rep #: [id number] : 1965 59 From: Ben Salter MD Attending Dr: Dr. Nirmala Armenta MD Status: APOORVA G CLI Ordering Dr: Nirmala Armenta MD Date: 08/23/24 Location: [facility] Sex: F C Admitted: Reason For Study Reason For Study: Assess LV function Procedure This was a limited 2D transthoracic echocardiogram. Exam performed in department. Left Ventricle Mildly dilated left ventricle. The left ventricular ejection fraction is 45 %. There is mild to moderate global hypokinesis of the left ventricle. Right Ventricle Normal RV size. Atria Normal left atrium. Normal right atrium. Mitral Valve Normal mitral valve. Tricuspid Valve Normal tricuspid valve. Aortic Valve Trisinus/trileaflet aortic valve. Pulmonic Valve Normal pulmonic valve. Great Vessels Normal aortic root. Pericardium/Pleural No pericardial effusion. MMode/2D Measurements Calculations LVIDd: 6.2 cm IVSd: 1.0 cm LAV(MOD-bp): 69.5 ml LVIDs: 4.6 cm LVPWd: 1.0 cm LAV(MOD-bp) Indexed: 30.8 ml/m2 RVDd: 3.6 cm FS: 25.4 % LAV(MOD-sp2): 56.8 ml LAV(MOD-sp4): 77.3 ml SV(MOD-sp4): 64.2 ml LVAd ap4: 41.3 cm2 LVAd ap2: 45.4 cm2 LVLd ap4: 9.3 cm LVLd ap2: 9.5 cm SI(MOD-sp4): 28.5 ml/m2 EDV(MOD-sp4): 155.5 ml EDV(MOD-sp2): 182.7 ml EDV(sp4-el): 154.7 ml EDV(sp2-el): 185.0 ml LVAs ap4: 30.6 cm2 LVAs ap2: 32.4 cm2 LVLs ap4: 8.6 cm LVLs ap2: 8.7 cm ESV(MOD-sp4): 91.3 ml ESV(MOD-sp2): 98.6 ml ESV(sp4-el): 91.9 ml ESV(sp2-el): 102.0 ml EF(MOD-sp4): 41.3 % EF(MOD-sp2): 46.0 % EF(sp4-el): 40.6 % SV(MOD-sp2): 84.1 ml SV(sp4-el): 62.8 ml LA A4 area: 22.0 cm2 SI(MOD-sp2): 37.3 ml/m2 LA dimension(2D): 3.8 cm RA A4 area: 15.0 cm2 ECHO/Echo, Limited Study Interpretation Summary Mildly dilated left ventricle. The left ventricular ejection fraction is 45 %. There is mild to moderate global hypokinesis of the left ventricle. Compared to previous study, the left ventricular systolic function has improved.. Ordering Physician: Nirmala Armenta Referring Physician: Washington Grullon Performed By: Glo Lora RDCS 08/23/24 1523 Date Ben Salter MD CC: Dr. Nirmala Armenta MD; KADY Hook Date Dictated: 08/23/24 075 Date Transcribed: 08/23/241522 Safety Representative: Signed Normal [facility] Glomerular filtration rate ( GFR) estimation/1.73 sq m using serum, plasma, or whole bOrdered By: Nirmala Armenta on 08-23-2024 GFR/1.73 sq M.predicted among non-blacks MDRD (S/P/Bld) [Vol rate/Area] 70 mL/min/{1.73_m2} >60 [facility] Comment on above: mL/min/1.73m2 CKD-EP I Creatinine Equation (2020) Potassium measurement (mass/ volume)Ordered By: Nirmala Armenta on 08-23-2024 Potassium (Unsp spec) [Mass/Vol] 4.6 mmol/L 3.3-5.1 [facility] Serum creatinine measurement (mass/volume)Ordered By: Nirmala Armenta on 08-23-2024 Creatinine [Mass/Vol] 0.93 mg/dL 0.70-1.20 [facility] Serum glucose measurement (m ass/volume)Ordered By: Nirmala Armenta on 08-23-2024 Glucose [Mass/Vol] 91 mg/dL 70-99 [facility] Serum or plasma calcium darin urement (mass/volume)Ordered By: Nirmala Armenta on 08-23-2024 Calcium [Mass/Vol] 8.6 mg/dL 7.6-11.0 [facility] Serum or plasma urea nitroge n measurement (mass/volume)Ordered By: Nirmala Armenta on 08-23-2024 Urea nitrogen [Mass/Vol] 17 mg/dL 4-19 [facility] Sodium levelOrdered By: Carson Armenta on 08-23-2024 Sodium [Moles/Vol] 138 mmol/L 133-145 [facility] BMP with eGFRon 07-05-2024 AGE 59 years Normal [facility] Comment on above: Performed By: #### 2 [id number] #### [facility],[address] [place] [address] 78959 Anion gap [Moles/Vol] 9 mmol/L Low 10 - 20 [facility] Comment on above: Performed By: #### 2 43705 #### [facility],[address] [place] [address] 82967 BMP with eGFR Normal [facility] Comment on above: Result Comment: BASI C METABOLIC PANEL Performed By: #### 2 11473 #### [facility],[address] [place] [address] 81390 Calcium [Mass/Vol] 9.1 mg/dL Normal 8.5 - 10.1 [facility] Comment on above: Performed By: #### 2 20858 #### [facility],[address] [place] [address] 74703 Chloride [Moles/Vol] 105 mmol/L Normal 98 - 107 [facility] Comment on above: Performed By: #### 2 67837 #### [facility],[address] [place] [address] 89687 CO2 [Moles/Vol] 30.1 mmol/L Normal 21.0 - 32.0 [facility] Comment on above: Performed By: #### 2 52442 #### [facility],[address] [place] [address] 08011 Creatinine [Mass/Vol] 0.93 mg/dL Normal 0.55 - 1.02 [facility] Comment on above: Performed By: #### 2 11166 #### [facility],[address] [place] [address] 44753 GFR/1.73 sq M.predicted among non-blacks MDRD (S/P/Bld) [Vol rate/Area] mL/min/{1.73_m2} Normal 60 - 999 [facility] Comment on above: Performed By: #### 2 75100 #### [facility],[address] [place] [address] 01891 Result Comment: ACCO RDING TO THE NATIONAL KIDNEY DISEASE EDUCATION PROGRAM(NKDE), A NORMAL eGFR IS A VALUE GREATER THAN OR EQUAL TO 60 ML/MIN/1.73 SQ METERS. CHRONIC KIDNEY DISEASE: <60mL/MIN/1.73 SQ METERS KIDNEY FAILURE: <15mL/MIN/1.73 SQ METERS THIS TEST SHOULD ONLY BE USED FOR PATIENTS 18 YEARS OF AGE AND OLDER. Glucose [Mass/Vol] 109 mg/dL High 74 - 106 [facility] Comment on above: Performed By: #### 2 42211 #### [facility],[address] [place] [address] 91455 Potassium [Moles/Vol] 4.4 mmol/L Normal 3.5 - 5.1 [facility] Comment on above: Performed By: #### 2 74713 #### [facility],[address] [place] [address] 86124 Sodium [Moles/Vol] 140 mmol/L Normal 136 - 145 [facility] Comment on above: Performed By: #### 2 10649 #### [facility],[address] [place] [address] 07375 Urea nitrogen [Mass/Vol] 21 mg/dL High 7 - 18 [facility] Comment on above: Performed By: #### 2 47431 #### [facility],[address] [place] [address] 04301 Basic Metabolic Profile (BMP )on 06-21-2024 BUN/CRE 24.8 RATIO High 02-18 [facility] Comment on above: Order Comment: Comme nts: at next OV at next OV Performed By: #### L 500.4100, L500.2500 #### [facility] [address] [place], [address] CA,Total 9.4 mg/dL Normal 8.5-10.1 [facility] Comment on above: Order Comment: Comme nts: at next OV at next OV Performed By: #### L 500.4100, L500.2500 #### [facility] [address] [place], [address] Chloride [Moles/Vol] 108 mmol/L High 98-107 [facility] Comment on above: Order Comment: Comme nts: at next OV at next OV Performed By: #### L 500.4100, L500.2500 #### [facility] [address] [place], [address] CO2 [Moles/Vol] 28.0 mmol/L Normal 21.0-32.0 [facility] Comment on above: Order Comment: Comme nts: at next OV at next OV Performed By: #### L 500.4100, L500.2500 #### [facility] [address] [place], [address] Creatinine [Mass/Vol] 0.85 mg/dL Normal 0.55-1.02 [facility] Comment on above: Order Comment: Comme nts: at next OV at next OV Result Comment: The validity of the calculated GFR GFRAA in patients over 70 years has not been determined. Clinical correlation is essential. Performed By: #### L 500.4100, L500.2500 #### [facility] [address] [place], [address] EST GFR - AA 88 mL/min Normal >60 [facility] Comment on above: Order Comment: Comme nts: at next OV at next OV Result Comment: Afri can Gabonese GFR Calc Performed By: #### L 500.4100, L500.2500 #### [facility] [address] [place], [address] GAP 4 Low 5-15 [facility] Comment on above: Order Comment: Comme nts: at next OV at next OV Performed By: #### L 500.4100, L500.2500 #### [facility] [address] [place], [address] GFR/1.73 sq M.predicted among non-blacks MDRD (S/P/Bld) [Vol rate/Area] 73 mL/min/{1.73_m2} Normal >60 [facility] Comment on above: Order Comment: Comme nts: at next OV at next OV Result Comment: Non- GFR Calc Performed By: #### L 500.4100, L500.2500 #### [facility] [address] [place], [address] Glucose [Mass/Vol] 90 mg/dL Normal 74-106 [facility] Comment on above: Order Comment: Comme nts: at next OV at next OV Performed By: #### L 500.4100, L500.2500 #### [facility] [address] [place], [address] Potassium [Moles/Vol] 4.3 mmol/L Normal 3.5-5.1 [facility] Comment on above: Order Comment: Comme nts: at next OV at next OV Performed By: #### L 500.4100, L500.2500 #### [facility] [address] [place], [address] Sodium [Moles/Vol] 140 mmol/L Normal 136-145 [facility] Comment on above: Order Comment: Comme nts: at next OV at next OV Performed By: #### L 500.4100, L500.2500 #### [facility] [address] [place], [address] Urea nitrogen [Mass/Vol] 21 mg/dL High 7-18 [facility] Comment on above: Order Comment: Comme nts: at next OV at next OV Performed By: #### L 500.4100, L500.2500 #### [facility] [address] [place], [address] Cardiology Visit Reporton Cardiology Visit Report [facility] [address] [place] [address] OFFICE VISIT Date of Service: 06/21/24 MR#: [id number] Acct: [id number] Name: MICHAEL DALTON Rep #: [id number] : 1965 Provider: Dr. Nirmala tucekr MD Age/Sex: 59/F [place] [facility] [place] Status: Signed HPI HPI History of Present Illness Details: Patient is a 59-year-old [employer] female. She comes in today for titration of her guideline directed medical therapy for heart failure. The patient has a history of heart failure reduced ejection fraction of 25% on echocardiogram done May 10, 2024. The patient was instituted on Lasix 40 mg daily Coreg 12.5 mg twice daily and losartan 50 mg nightly. Patient's blood pressure at home environment the systolics have run around 140. Here in the office today she is 163/90. She did not take her Coreg or Lasix this morning. The patient had lab work done May 14, 2024 which showed her creatinine did increase to 1.26 her BUN was 22 potassium 4.0 sodium 140. Her GFR was 46. Her BNP was 91. Her Lasix was decreased to 20 mg daily. The patient reports that she feels pretty much back to baseline activity levels. She is sleeping through the night she is not having any more PND orthopnea. She did have 1 episode where she felt slightly congested when she lay down at night but it went away and she slept through the night without incident. We do not have an etiology of her LV dysfunction. She had global LV systolic dysfunction on her echo with no regional wall motion abnormalities. There was no history of recent viral infection the only possible etiology that I can ascertain at this time is her hypertension which was not well- controlled prior to this event in May. Intake Vital Signs 05/14/24 12:55 06/21/24 08:30 Height 5 ft 4 in 5 ft 4 in Weight: 274 lb 279 lb BMI 47.0 47.9 BP 139/75 H 163/90 H Blood Pressure Location Rt brachial Lt brachial Position Sitting Sitting Respiration 18 18 Pulse 70 64 Pulse Source Monitor Monitor Pulse Oximetry (%) 90 94 Oxygen Delivery Method room air room air Intake Visit Reasons: 1 M FU Medical Review Coordinator Required: No Accompanied by: Is patient in pain?: No Allergies No Known Allergies Allergy (Verified 06/21/24 08:31) Medications ???Medication ???Instructions ???Recorded ???Confirmed ???Type carvedilol 12.5 mg tablet 12.5 mg PO BID #180 tabs 05/14/24 06/21/24 Rx furosemide 20 mg tablet 20 mg PO .qam #90 tabs 06/21/24 R x losartan 100 mg tablet 100 mg PO QDAY #90 tabs 06/21/24 0 06/21/24 Rx Ejection fraction %: 25 Have you fallen in the past year?: No PFSH Medical History Congestive heart failure Acute CHF Family History Father Myocardial infarction Hypertension Grandmother Heart disease Mother Hypertension Social History Smoking Status: Never smoker alcohol intake: never substance use type: does not use caffeine: Yes ROS Const Const: Negative for fatigue or weakness ENT ENT: Negative for dizziness or balance problems Cardio Chest Pain: No Palpitations: Yes Edema: Bilateral Muscle aches with walking: None Resp Respiratory: Negative for SOB with activity, SOB at rest or SOB orthopnea SOB lying down GI GI: Positive for heartburn; Negative nausea or vomiting Musc Musc: Negative for muscle weakness or balance problems Neuro Neuro: Negative for dizziness, lightheadedness, near syncope, syncope or weakness Endo Endo: Negative for fatigue Cardiology Exam Const Appearance: cooperative, comfortable and no acute distress Nutritional Appearance: obese Head Head: normal to inspection Eyes General: appearance normal, both eyes and all related structures Neck Neck: normal visual inspection and no JVD Carotids: Negative bruit Chest Chest inspection: normal inspection of the chest Auscultation: Bilateral: Clear to Auscultation Cardio Rate: regular rate Rhythm: regular rhythm Heart sounds: S1 normal and S2 normal; Negative rub, gallop or murmur Very distant heart tones due to body habitus. GI GI: obese Neuro General: patient alert and patient oriented x3 Extremities Lower Extremity Edema: Trace: Bilateral Psych Psychological: normal affect Supplemental Info Supplemental Information Labs: LDL Cholesterol Pending HDL Cholesterol Pending Cholesterol Pending Triglycerides Pending Diagnostics: Electrocardiogram Echocardiogram Chest X-Ray Pulmonary: No Data to Display Past Visits: Cardiology Visit 06/21/24 Assessment and Plan Assessment and Plan (1) Conges (more content not included)... Normal [facility] Lipid Profileon 06-21-2024 Cholesterol [Mass/Vol] 173 mg/dL Normal 200 [facility] Comment on above: Order Comment: Comme nts: at next OV Result Comment: <200 mg/dL Desirable 200-240 mg/dL Borderline >240 mg/dL High Risk Performed By: #### L 500.4100, L500.2500 #### [facility] [address] [place], [address] Cholesterol in HDL [Mass/Vol] 50 mg/dL Normal [facility] Comment on above: Order Comment: Comme nts: at next OV Result Comment: The drugs N-Acetylcysteine and Metamizole may falsely depress this assay. Reference Range HDL <40 mg/dL Low HDL Cholesterol HDL >or= 60 mg/dL High HDL Cholesterol Performed By: #### L 500.4100, L500.2500 #### [facility] [address] [place], [address] Cholesterol in LDL [Mass/Vol] 100 mg/dL Normal 0-130 [facility] Comment on above: Order Comment: Comme nts: at next OV Performed By: #### L 500.4100, L500.2500 #### [facility] [address] [place], [address] Cholesterol in VLDL [Mass/Vol] 23 mg/dL Normal 5-40 [facility] Comment on above: Order Comment: Comme nts: at next OV Performed By: #### L 500.4100, L500.2500 #### [facility] [address] [place], [address] Triglyceride [Mass/Vol] 114 mg/dL Normal [facility] Comment on above: Order Comment: Comme nts: at next OV Result Comment: The drugs N-Acetylcysteine and Metamizole may falsely depress this assay. Serum Triglycerides Reference Interval Normal <150 mg/dL Borderline high 150 - 199 mg/dL High 200 - 499 mg/dL Very High > or = 500 mg/dL Performed By: #### L 500.4100, L500.2500 #### [facility] [address] [place], [address] BNP,B-Type NATRIURETIC PEPTI David 05-14-2024 Natriuretic peptide B (Bld) [Mass/Vol] 91.4 pg/mL Normal 0-100 [facility] Comment on above: Performed By: #### L 500.2500, L503.6620 #### [facility] [address] [place], [address] Basic Metabolic Profile (BMP )on 05-14-2024 BUN/CRE 17.5 RATIO Normal 10-20 [facility] Comment on above: Performed By: #### L 500.2500, L503.6620 #### [facility] [address] [place], [address] CA,Total 9.0 mg/dL Normal 8.5-10.1 [facility] Comment on above: Performed By: #### L 500.2500, L503.6620 #### [facility] [address] [place], [address] Chloride [Moles/Vol] 104 mmol/L Normal 98-107 [facility] Comment on above: Performed By: #### L 500.2500, L503.6620 #### [facility] [address] [place], [address] CO2 [Moles/Vol] 32.0 mmol/L Normal 21.0-32.0 [facility] Comment on above: Performed By: #### L 500.2500, L503.6620 #### [facility] [address] [place], [address] Creatinine [Mass/Vol] 1.26 mg/dL High 0.55-1.02 [facility] Comment on above: Result Comment: The validity of the calculated GFR GFRAA in patients over 70 years has not been determined. Clinical correlation is essential. Performed By: #### L 500.2500, L503.6620 #### [facility] [address] [place], [address] EST GFR - AA 56 mL/min Low >60 [facility] Comment on above: Result Comment: Afri can Gabonese GFR Calc Performed By: #### L 500.2500, L503.6620 #### [facility] [address] [place], [address] GAP 4 Low 5-15 [facility] Comment on above: Performed By: #### L 500.2500, L503.6620 #### [facility] [address] [place], [address] GFR/1.73 sq M.predicted among non-blacks MDRD (S/P/Bld) [Vol rate/Area] 46 mL/min/{1.73_m2} Low >60 [facility] Comment on above: Result Comment: Non- GFR Calc Performed By: #### L 500.2500, L503.6620 #### [facility] [address] [place], [address] Glucose [Mass/Vol] 107 mg/dL High 74-106 [facility] Comment on above: Result Comment: Fast ing Glucose result from 100 to 125 mg/dL suggests IMPAIRED HOMEOSTASIS per A.D.A. criteria. Performed By: #### L 500.2500, L503.6620 #### [facility] [address] [place], [address] Potassium [Moles/Vol] 4.0 mmol/L Normal 3.5-5.1 [facility] Comment on above: Performed By: #### L 500.2500, L503.6620 #### [facility] [address] [place], [address] Sodium [Moles/Vol] 140 mmol/L Normal 136-145 [facility] Comment on above: Performed By: #### L 500.2500, L503.6620 #### [facility] [address] [place], [address] Urea nitrogen [Mass/Vol] 22 mg/dL High 7-18 [facility] Comment on above: Performed By: #### L 500.2500, L503.6620 #### [facility] [address] [place], [address] Cardiology Visit Reporton Cardiology Visit Report [facility] [address] [place], [place] [address] OFFICE VISIT Date of Service: 05/14/24 MR#: [id number] Acct: [id number] Name: MICHAEL DALTON Rep #: [id number] : 1965 Provider: Dr. Nirmala tucker MD Age/Sex: 58/F [place] [facility] [place] Status: Signed HPI HPI History of Present Illness Details: Patient is a 58-year-old white female comes in with her today for a new patient visit. Patient was evaluated in the emergency department on 05/07/2024. He presented with progressive dyspnea on exertion cough and PND. She was diagnosed with new onset congestive heart failure but preferred not to be admitted to the hospital. She was diuresed with IV Lasix and discharged to home on Coreg Lasix and losartan. The patient had an echocardiogram done earlier this week which showed global LV systolic dysfunction with a EF of 25% stage II diastolic dysfunction. She had left atrial enlargement 1-2+ MR and trace tricuspid regurgitation with a normal RV. Since discharge the patient reports that she feels much better she is able to sleep at night she could not even lay down prior to being evaluated in the ER. She is denies any lower extremity edema this scant edema she had is resolved. She reports her urine output is increased on the Lasix. She does still have a cough but she has a chronic cough. The patient denies any recent bronchitis or viral infection. She does have a history of longstanding elevated blood pressures in the 150 systolic range. She has not been on antihypertensives. She does report that during her last she did require antihypertensive therapy. The patient's primary care physician recently retired and she is now switching over to [facility]. She is yet to see him. The patient denies any family history of early coronary disease she does have a history of hypertension she does not know her lipid status is not aware that it is ever been checked. She has never smoked and is not diabetic. Of note the patient did have a bundle branch block which appears to be a left bundle branch block on her EKG May 07, 2024. We did not redo an EKG in the office today. Intake Vital Signs 05/07/24 14:10 05/14/24 12:55 Height 5 ft 4 in 5 ft 4 in Weight: 274 lb BMI 47.0 BP 139/75 H Blood Pressure Location Rt brachial Position Sitting Respiration 18 Pulse 70 Pulse Source Monitor Pulse Oximetry (%) 90 Oxygen Delivery Method room air Intake Visit Reasons: S/P [facility] CHF Medical Review Coordinator Required: No Accompanied by: Is patient in pain?: No Allergies No Known Allergies Allergy (Verified 05/14/24 12:56) Medications ???Medication ???Instructions ???Recorded ???Confirmed ???Type furosemide 40 mg tablet 40 mg PO .qam #30 tabs 05/07/24 05/14/24 Rx carvedilol 12.5 mg tablet 12.5 mg PO BID #180 tabs 05/14/24 05/14/24 Rx losartan 50 mg tablet 50 mg PO QHS #90 tabs 05/14/24 05/14/24 Rx Ejection fraction %: 25 Have you fallen in the past year?: No PFSH Medical History Congestive heart failure Acute CHF Family History Father Myocardial infarction Hypertension Grandmother Heart disease Mother Hypertension Social History Smoking Status: Never smoker alcohol intake: never substance use type: does not use caffeine: Yes ROS Const Const: Positive for fatigue (with exertion); Negative for weakness ENT ENT: Negative for dizziness or balance problems Cardio Chest Pain: No Palpitations: No Edema: Bilateral Muscle aches with walking: None Resp Respiratory: Negative for SOB with activity, SOB at rest or SOB orthopnea SOB lying down GI GI: Negative nausea, vomiting or heartburn Musc Musc: Negative for muscle weakness or balance problems Neuro Neuro: Negative for dizziness, lightheadedness, near syncope, syncope or weakness Endo Endo: Positive for fatigue (with exertion) Cardiology Exam Const Appearance: cooperative, comfortable and no acute distress Nutritional Appearance: obese Head Head: normal to inspection Eyes General: appearance normal, both eyes and all related structures Neck Neck: normal visual inspection and no JVD Carotids: Negative bruit Chest Chest inspection: normal inspection of the chest Auscultation: Bilateral: Clear to Auscultation Cardio Rate: regular rate Rhythm: regular rhythm Heart sounds: S1 normal, S2 normal and murmur; Negative rub or gallop Murmur: Grade 2/6, soft, mid systolic and LLSB GI GI: normal to inspection and obese Neuro General: patient alert and patient oriented x3 Skin Skin: no rashes or lesions noted Extremities (more content not included)... Normal [facility] Echo Completeon 05-10-2024 Echo Complete [facility] [address] [place] [address] Echo Complete 05/10/24 0856 MR#: [id number] Acct: [id number] Name: MICHAEL DALTON Rep #: [id number] : 1965 58 From: Rickie Sanford MD Attending Dr: KADY Valera Status: REG CLI Ordering Dr: Dorothy Trejo Date: 01/24 Location: CVS Sex: F C Admitted: Reason For Study: SHORTNESS OF BREATH Procedure This was a 2D Doppler, Color Flow transthoracic echocardiogram. Myocardial strain analysis was performed in this exam to aid in the assessment of cardiac function. Exam performed in department. Left Ventricle Mildly dilated left ventricle. The global longitudinal strain = -10.2% (abnormal). The estimated ejection fraction is 25 %. Stage 2 diastolic dysfunction. There is severe global hypokinesis of the left ventricle. Right Ventricle Normal RV size. Normal systolic function. Atria The left atrium is mildly enlarged. Normal right atrium. No doppler evidence for ASD. Mitral Valve There is no mitral valve stenosis. Mild-Moderate (1-2+) mitral valve insufficiency. Tricuspid Valve There is no tricuspid stenosis. Trivial tricuspid valve insufficiency. Unable to estimate RV systolic pressure due to insufficient tricuspid regurgitant envelope. Aortic Valve Trisinus/trileaflet aortic valve. There is no aortic stenosis. No aortic valve insufficiency. Pulmonic Valve There is no pulmonic valvular stenosis. Trivial pulmonic valve insufficiency. Great Vessels Normal aortic root. Pericardium/Pleural No pericardial effusion. MMode/2D Measurements Calculations LVIDd: 6.5 cm IVSd: 1.1 cm LVOT diam: 2.2 cm LVIDs: 5.4 cm LVPWd: 1.1 cm LVOT area: 3.8 cm2 RVDd: 4.3 cm FS: 17.0 % asc Aorta Diam: 3.5 cm LAV(MOD-bp): 84.3 ml EDV(MOD-sp4): 157.2 ml LAV(MOD-bp) Indexed: 37.0 ml/m2 ESV(MOD-sp4): 113.7 ml LAV(MOD-sp2): 116.7 ml EF(MOD-sp4): 27.6 % LAV(MOD-sp4): 60.5 ml EDV(MOD-sp2): 159.1 ml SV(MOD-sp4): 43.4 ml SV(MOD-sp2): 39.8 ml ESV(MOD-sp2): 119.3 ml EF(MOD-sp2): 25.0 % SI(MOD-sp4): 19.0 ml/m2 SI(MOD-sp2): 17.5 ml/m2 Ao sinus diam: 3.[address] Junction: 2.8 cm LA A4 area: 20.8 cm2 LA dimension(2D): 4.3 cm TAPSE: 2.0 cm RA A4 area: 18.2 cm2 Time Measurements MV dec time: 0.19 sec Doppler Measurements Calculations MV E max neal: 89.6 cm/sec Lat Peak E' Neal: 5.3 cm/sec Med Peak E' Neal: 6.3 cm/sec MV A max neal: 101.8 cm/sec E/E' lat: 17.0 E/E' med: 14.2 MV E/A: 0.88 MV dec slope: 480.9 cm/sec2 Ao V2 max: 119.2 cm/sec LV V1 max: 105.7 cm/sec Ao max P.7 mmHg LV V1 max P.5 mmHg Ao V2 mean: 86.1 cm/sec LV V1 mean P.9 mmHg Ao mean P.3 mmHg LV V1 mean: 83.5 cm/sec Ao V2 VTI: 26.3 cm LV V1 VTI: 20.3 cm AV (velocity ratio): 0.77 ABRAHAN(I,D): 2.9 cm2 ABRAHAN(V,D): 3.3 cm2 SV(LVOT): 76.1 ml PA V2 max: 70.1 cm/sec ECHO/Echo Complete Interpretation Summary The estimated ejection fraction is 25 %. Stage 2 diastolic dysfunction. There is severe global hypokinesis of the left ventricle. The left atrium is mildly enlarged. Mild-Moderate (1-2+) mitral valve insufficiency. Ordering Physician: Dorothy Trejo Referring Physician: WASHINGTON GRULLON Performed By: Fany Marcos [facility] 05/11/24 1539 Date Rickie Sanford MD CC: KADY Hook; KADY Valera Date Dictated: 05/10/24 0856 Date Transcribed: 05/11/241538 Safety Representative: Signed Normal [facility] 12 Lead EKGon 05-07-2024 12 Lead EKG [facility] Cardiovascular Services [address] [place] [address] 12 Lead EKG 05/07/24 1416 MR#: [id number] Acct: [id number] Name: MICHAEL DALTON Rep #: [id number] : 1965 58 From: Nirmala Armenta MD Attending Dr: Status: DEP ER Ordering Dr: ProviderEmmanuel. Date: 05/07/24 Location: ED Sex: F C Admitted: Test Reason : SOB Blood Pressure : */* mmHG Vent. Rate : 92 BPM Atrial Rate : 92 BPM P-R Int : 182 ms QRS Dur : 160 ms QT Int : 416 ms P-R-T Axes : 37 -24 137 degrees QTcB Int : 514 ms Normal sinus rhythm Non-specific intra-ventricular conduction block Minimal voltage criteria for LVH, may be normal variant ( Tc product ) Cannot rule out Lateral infarct , age undetermined Cannot rule out Inferior infarct , age undetermined Abnormal ECG Confirmed by Nirmala Armenta ([id number]), greeting card editor ARNULFO HERNANDEZ ([id number]) on 05/08/2024 1:22:37 PM Referred By: Dean Jara Confirmed By: Nirmala Armenta 05/08/24 1322 Date Nirmala Armenta MD CC: DEFINED NOT; Dr. Dean Jara MD; ED PHYSICIAN PROVIDER Signed Normal [facility] BNP,B-Type NATRIURETIC PEPTI David 05-07-2024 Natriuretic peptide B (Bld) [Mass/Vol] 206.3 pg/mL High 0-100 [facility] Comment on above: Performed By: #### L 503.6623 #### [facility] [address] [place], [place], [id number] Basic Metabolic Profile (BMP )on 05-07-2024 BUN/CRE 14.8 RATIO Normal 10-20 [facility] Comment on above: Order Comment: 'TROP ' Serial specimen #1, #2 or #3: 1 Performed By: #### L 100.0100, L501.4020, L500.2500 #### [facility] [address] [place], [address] CA,Total 9.0 mg/dL Normal 8.5-10.1 [facility] Comment on above: Order Comment: 'TROP ' Serial specimen #1, #2 or #3: 1 Performed By: #### L 100.0100, L501.4020, L500.2500 #### [facility] [address] [place], [address] Chloride [Moles/Vol] 110 mmol/L High 98-107 [facility] Comment on above: Order Comment: 'TROP ' Serial specimen #1, #2 or #3: 1 Performed By: #### L 100.0100, L501.4020, L500.2500 #### [facility] [address] [place], [address] CO2 [Moles/Vol] 23.0 mmol/L Normal 21.0-32.0 [facility] Comment on above: Order Comment: 'TROP ' Serial specimen #1, #2 or #3: 1 Performed By: #### L 100.0100, L501.4020, L500.2500 #### [facility] [address] [place], [address] Creatinine [Mass/Vol] 1.08 mg/dL High 0.55-1.02 [facility] Comment on above: Order Comment: 'TROP ' Serial specimen #1, #2 or #3: 1 Result Comment: The validity of the calculated GFR GFRAA in patients over 70 years has not been determined. Clinical correlation is essential. Performed By: #### L 100.0100, L501.4020, L500.2500 #### [facility] [address] [place], [address] ECRCL 74.51 ml/min Normal [facility] Comment on above: Order Comment: 'TROP ' Serial specimen #1, #2 or #3: 1 Performed By: #### L 100.0100, L501.4020, L500.2500 #### [facility] [address] [place], [address] EST GFR - AA 66 mL/min Normal >60 [facility] Comment on above: Order Comment: 'TROP ' Serial specimen #1, #2 or #3: 1 Result Comment: Afri can Gabonese GFR Calc Performed By: #### L 100.0100, L501.4020, L500.2500 #### [facility] [address] [place], [address] GAP 4 Low 5-15 [facility] Comment on above: Order Comment: 'TROP ' Serial specimen #1, #2 or #3: 1 Performed By: #### L 100.0100, L501.4020, L500.2500 #### [facility] [address] [place], [address] GFR/1.73 sq M.predicted among non-blacks MDRD (S/P/Bld) [Vol rate/Area] 55 mL/min/{1.73_m2} Low >60 [facility] Comment on above: Order Comment: 'TROP ' Serial specimen #1, #2 or #3: 1 Result Comment: Non- GFR Calc Performed By: #### L 100.0100, L501.4020, L500.2500 #### [facility] [address] [place], [address] Glucose [Mass/Vol] 103 mg/dL Normal 74-106 [facility] Comment on above: Order Comment: 'TROP ' Serial specimen #1, #2 or #3: 1 Result Comment: Fast ing Glucose result from 100 to 125 mg/dL suggests IMPAIRED HOMEOSTASIS per A.D.A. criteria. Performed By: #### L 100.0100, L501.4020, L500.2500 #### [facility] [address] [place], [address] Potassium [Moles/Vol] 4.5 mmol/L Normal 3.5-5.1 [facility] Comment on above: Order Comment: 'TROP ' Serial specimen #1, #2 or #3: 1 Result Comment: Mode rate Hemolysis, Result may be falsely increased. Performed By: #### L 100.0100, L501.4020, L500.2500 #### [facility] [address] [place], [address] Sodium [Moles/Vol] 137 mmol/L Normal 136-145 [facility] Comment on above: Order Comment: 'TROP ' Serial specimen #1, #2 or #3: 1 Performed By: #### L 100.0100, L501.4020, L500.2500 #### [facility] [address] [place], [address] Urea nitrogen [Mass/Vol] 16 mg/dL Normal 7-18 [facility] Comment on above: Order Comment: 'TROP ' Serial specimen #1, #2 or #3: 1 Performed By: #### L 100.0100, L501.4020, L500.2500 #### [facility] [address] [place], [address] CBC W/Diff, Automatedon 01-0 PLT EST ADEQUATE Normal ADEQ [facility] Comment on above: Performed By: #### L 100.0100, L501.4020, L500.2500 #### [facility] [address] [place], [address] Chest 1 View (Portable)on Chest 1 View (Portable) [facility] Imaging Services [address] [place] [address] Chest 1 View (Portable) MR#: [id number] Acct: [id number] Name: MICHAEL DALTON Rep #: [id number] : 1965 F 58 From: Tate Pappas MD PCP: NOT,DEFINED Status: PRE ER Study: Chest 1 View (Portable) Date of Exam: 05/07/24 Exam# [id number] Ordering Dr: Provider,Emmanuel PJohn [id number] STUDY: X-RAY CHEST REASON FOR EXAM: Female, 58 years old. Shortness of breath TECHNIQUE: Single AP portable view of the chest. COMPARISON: None. FINDINGS: Lungs are expanded with superimposed interstitial edema and small pleural effusions. Findings due to either pulmonary vascular congestion or inflammatory process. Follow-up recommended to assure complete resolution Normal size heart. Normal mediastinum and kasia. Normal visualized pulmonary arteries. Normal visualized aortic arch and descending thoracic aorta. There are diffuse degenerative changes of the visualized thoracic spine. Normal visualized ribs, clavicles, and shoulders. There is no demonstrated abnormality of the visualized soft tissue structures of the upper abdomen. RAD/Chest 1 View (Portable) IMPRESSION: Interstitial edema in the lower lung lee with small bilateral pleural effusions suggest pulmonary vascular congestion but findings could also be due to a diffuse inflammatory process. Follow-up recommended to assure resolution Electronically Signed: Benji Pappas MD at 15:01 EST Reading Location ID and State: [facility] / [place] , Service support , CC: DEFINED NOT; ED PHYSICIAN PROVIDER Safety Representative: Signed Normal [facility] Emergency Department Summary on 05-07-2024 Emergency Department Summary [facility] Medical Records Department [address] [place] [id number] Emergency Department Summary 05/07/24 MR#: [id number] Acct: [id number] Name: MICHAEL DALTON Rep #: [id number] : 1965 58 From: Dean Jara MD PCP: NOT,DEFINED Status:REG ER Location: ED HPI History of Present Illness Chief Complaint: Shortness of Breath Informant: patient Narrative Narrative: 58-year-old female has been having dyspnea with exertion for the past 4 to 5 weeks. It was worse last night with lying down, so she went to urgent care today to be evaluated for this for the first time, and they sent her to the ER out of concern she may be having congestive heart failure. She does not have a history of that that she knows of. With walking up stairs and light exertion she has been having dyspnea without chest discomfort, it is better with resting. She has had no presyncope or syncope. No palpitations, diaphoresis, GI symptoms, no cough or fevers. She states that the [facility] they were concerned about her having edema in her legs but she has not been noticing that. No known history of heart or lung problems she takes no prescriptions, she used to see Dr. Stinson but he apparently retired 3 to 4 months ago and she does not have a new PCP yet. [facility] Medical History no medical history no medical history Home Medications ???Medication ???Instructions ???Recorded ???Last Taken ???Type carvedilol 6.25 mg tablet (Coreg) 6.25 mg PO BID #60 tabs 05/07/24 Unknown Rx furosemide 40 mg tablet 40 mg PO .qam #30 tabs 05/07/24 Unknown Rx losartan 25 mg tablet 25 mg PO QHS #30 tabs 05/07/24 Unknown Rx Allergy/AdvReac Type Severity Reaction Status Date / Time No Known Allergies Allergy Verified 05/07/24 14:10 Social History Smoking Status: Never smoker ROS ROS ED Constitutional Constitutional ED: Denies chills or fever(s) Eyes Eyes: Denies change in vision or diplopia ENT ENT ED: Denies rhinorrhea or sore throat Cardiovascular Cardiovascular: Reports as per HPI, leg edema and orthopnea; Denies chest pain, lightheadedness, palpitations, radiating jaw, neck or arm pain or syncope Respiratory/Chest Respiratory/Chest: Reports dyspnea on exertion and orthopnea; Denies cough Gastrointestinal Gastrointestinal: Denies abdominal pain, diarrhea, nausea or vomiting Genitourinary Genitourinary ED: Denies dysuria or hematuria Musculoskeletal Musculoskeletal: Denies back pain or neck pain Integumentary Denies abscess or rash Neurologic Neurologic: Denies headache(s), paresthesias or weakness Psychiatric Psychiatric: Denies anxiety or suicidal thoughts EXAM Physical Exam Const Vital Signs: 05/07/24 14:10 05/07/24 15:42 05/07/24 15:42 Temperature 98.5 F Temperature Source Oral Pulse Rate 95 Respiratory Rate 18 Blood Pressure 173/86 H Blood Pressure Mean 115 Pulse Ox 96 98 98 Oxygen Delivery Method Room Air Room Air Room Air 05/07/24 16:10 05/07/24 16:15 Temperature Temperature Source Pulse Rate 83 84 Respiratory Rate 17 28 H Blood Pressure 152/76 H 152/76 H Blood Pressure Mean 101 101 Pulse Ox 94 94 Oxygen Delivery Method Room Air Room Air Positive well nourished, well developed and obese General Appearance ED: well developed and NAD Nutritional Appearance: obese HEENT Reports moist mucous membranes normocephalic and atraumatic Eyes PERRL and EOMs intact bilaterally Neck full ROM and supple Resp normal respiratory effort Resp Narrative: Mild bibasilar rhonchi otherwise clear Effort and Inspection: able to speak in complete sentences Cardio regular rate, regular rhythm and no murmurs Rate: Negative for bradycardia or tachycardic GI non-tender and non-distended Auscultation: normoactive bowel sounds Palpation: soft Back/Spine no CVA tenderness General Back: other FROM Extremity normal to inspection General Extremety ED: Yes edema; Negative for pulses abnormal or tenderness General Extremity: edema bilateral lower extremity Details: mild (To proximal tibia bilaterally, symmetric no signs of infection or tenderness); Negative for pulses abnormal Neuro oriented x3, CN's II-XII intact bilaterally and no sensory deficits noted Sensorium / Orientation: awake and alert Motor Exam: strength 5/5 throughout Skin no rashes or lesions noted and no wounds MDM MDM MDM Narrative Medical decision making narrative: Two-view chest x-ray my interpretation is consistent with some mild pulmonary edema, vascular congestion. Radiology in agreement. The rest of her workup is consistent with acute congestive heart failure, there is no evidence of acute coronary syndrome, she does have a left middle branch block w (more content not included)... Normal [facility] L501.4020on 05-07-2024 TROPONIN-I HS 37 pg/mL Normal 3.0-54.0 [facility] Comment on above: Order Comment: 'TROP ' Serial specimen #1, #2 or #3: 1 Result Comment: Clotilde okeefe Note: New Test Units and Gender Specific Reference Ranges. For more information see Policy Stat Procedure [place] High Sensitivity Troponin (TNIH) and attachments. Performed By: #### L 100.0100, L501.4020, L500.2500 #### [facility] [address] [place], [address] Office Visit Reporton 2024 Office Visit Report [facility] [address] [place] [address] OFFICE VISIT Date of Service: 05/07/24 MR#: [id number] Acct: [id number] Patient: MICHAEL DALTON Rep #: [id number] : 1965 Provider: AKDY Castro Age/Sex: 58/F Location: [facility] Status: Signed Intake Vital Signs 05/07/24 13:07 Height 1.63 m Weight: 130.181 kg BMI 49.2 BP 163/100 H Blood Pressure Location Lt brachial Position Sitting Pulse 91 Pulse Source Monitor Temp 98.1 F Temp Source Temporal Pulse Oximetry (%) 98 Intake Visit Reasons: CHEST CONGESTION/WHEEZING Chief Complaint: sob Allergies No Known Allergies Allergy (Unverified 05/07/24 13:09) Medications ???Medication ???Instructions ???Recorded ???Confirmed ???Type NK 05/07/24 05/07/24 History HPI HPI Chief Complaint: sob Details: MICHAEL DALTON, is a 58 F who presents to the office today for Coding Level of Care Code No Charge Diagnoses Congestive heart failure I50.9 Assessment and Plan Assessment and Plan (1) Congestive heart failure: Status: Acute Plan: SOB - SOB off and on all of april. Wheezing and worsening SOB when laying flat and at night. CP last night. Pitting edema in BL LE. SpO2 89% on room air. Pt advised to go straight to [facility] ER for further treatment as she likely has congestive heart failure. She does not have a PCP. 05/07/24 1318 Date Saturnino HILLMAN Cosigner Signature: Date (if applicable) CC: Normal [facility] Vital Signs Date Time Vital Sign Value Performing Clinician Facility 11-29-2024 08:35-0400 Body height 162.56 cm Luke Mitchel PA Work Phone: [facility] 11-29-2024 08:35-0400 Body mass index (BMI) [Ratio] 45.1 kg/m2 Luke Mitchel PA Work Phone: [facility] 11-29-2024 08:35-0400 Body weight 119.29 kg Luke Mitchel PA Work Phone: [facility] 11-29-2024 08:35-0400 Diastolic blood pressure 55 mm[Hg] Luke Mitchel PA Work Phone: [facility] 11-29-2024 08:35-0400 Heart rate 46 /min Luke Mitchel PA Work Phone: [facility] 11-29-2024 08:35-0400 Respiratory rate 18 /min Luke Mitchel PA Work Phone: [facility] 11-29-2024 08:35-0400 SaO2% (BldA) [Mass fraction] 96 % Luke Mitchel PA Work Phone: [facility] 11-29-2024 08:35-0400 Systolic blood pressure 110 mm[Hg] Luke Mitchel PA Work Phone: [facility] 08-23-2024 09:47-0400 Body mass index (BMI) [Ratio] 45.6 kg/m2 Luke Mitchel PA Work Phone: [facility] 08-23-2024 09:47-0400 Body weight 120.65 kg Luke Mitchel PA Work Phone: [facility] 08-23-2024 09:47-0400 Diastolic blood pressure 78 mm[Hg] Luke Mitchel PA Work Phone: [facility] 08-23-2024 09:47-0400 Heart rate 58 /min Luke Mitchel PA Work Phone: [facility] 08-23-2024 09:47-0400 Respiratory rate 18 /min Luke Mitchel PA Work Phone: [facility] 08-23-2024 09:47-0400 SaO2% (BldA) [Mass fraction] 93 % Washington Mitchel PA Work Phone: [facility] 08-23-2024 09:47-0400 Systolic blood pressure 142 mm[Hg] Washington Alasetler PA Work Phone: [facility] 08-03-2024 09:38-0400 Body height 162.56 cm Mei Cali MA [facility], [facility].; [facility]. 08-03-2024 09:38-0400 Body mass index (BMI) [Ratio] 46 kg/m2 Mei Cali [facility].; [facility]. 08-03-2024 09:38-0400 Body surface area Derived from formula 2.22 m2 Mei Cali [facility].; [facility]. 08-03-2024 09:38-0400 Body temperature 97.8 [degF] [facility] Cali [facility].; [facility]. Comment on above: Method: Tympanic 08-03-2024 09:38-0400 Body weight 121.56 kg Mei Cali [facility].; [facility]. 08-03-2024 09:38-0400 Diastolic blood pressure 74 mm[Hg] Mei Cali [facility].; [facility]. Comment on above: Patient Position: Sitting; Cuff Location : Left Arm; Cuff Size: Standard 08-03-2024 09:38-0400 Heart rate 45 /min Mei Cali [facility].; [place] [employer] [facility]. Comment on above: Pattern: Regular 08-03-2024 09:38-0400 Inhaled oxygen concentration 21 % Mei Cali MA [facility].; [place] [facility]. Comment on above: Room air 08-03-2024 09:38-0400 SaO2% (BldA) [Mass fraction] 97 % Mei Cali MA [facility], [facility].; [facility]. 08-03-2024 09:38-0400 Systolic blood pressure 124 mm[Hg] Mei Cali MA [facility], [facility].; [place] [employer] [facility]. Comment on above: Patient Position: Sitting; Cuff Location : Left Arm; Cuff Size: Standard 2024 09:02-0500 Body height 162.56 cm Edwar Vangon CASE MONITOR [facility], [facility].; [place] [employer] [facility]. 2024 09:02-0500 Body mass index (BMI) [Ratio] 48.23 kg/m2 Edwar Bryan CASE MONITOR [facility], [facility].; [place] [employer] [facility], [employer]. 2024 09:02-0500 Body surface area Derived from formula 2.26 m2 Edwar Bryan CASE MONITOR [facility], [facility].; [place] [employer] [facility], [facility]. 2024 09:02-0500 Body weight 127.[address] [facility], [facility].; [employer] [facility]. 2024 09:02-0500 Diastolic blood pressure 78 mm[Hg] Edwar Bryan CASE MONITOR [facility], [facility].; [employer]. Comment on above: Patient Position: Sitting; Cuff Location : Left Arm; Cuff Size: Standard 2024 09:02-0500 Heart rate 64 /min Edwar Bryan CASE MONITOR [facility], [facility].; [employer]. Comment on above: Pattern: Regular 2024 09:02-0500 Systolic blood pressure 157 mm[Hg] Edwar Adams CASE MONITOR [facility], [facility].; [employer]. Comment on above: Patient Position: Sitting; Cuff Location : Left Arm; Cuff Size: Standard 05-18-2024 10:39-0500 Body height 162.56 cm Washington Grullon PA-C Work Phone: [facility] [employer] 05-18-2024 10:39-0500 Body mass index (BMI) [Ratio] 47.24 kg/m2 Luke Mitchel PA-C Work Phone: [employer] 05-18-2024 10:39-0500 Body surface area Derived from formula 2.24 m2 Luke Mitchel PA-C Work Phone: [employer]; [employer] 05-18-2024 10:39-0500 Body weight 124.83 kg Luke Mitchel PA-C Work Phone: [employer]; [employer] 05-18-2024 10:39-0500 Diastolic blood pressure 84 mm[Hg] Luke Mitchel PA-C Work Phone: [employer]; [employer]. Comment on above: Patient Position: Sitting; Cuff Location : Left Arm; Cuff Size: Standard 05-18-2024 10:39-0500 Heart rate 61 /min Luke Mitchel PA-C Work Phone: [employer]; [employer] Comment on above: Pattern: Regular 05-18-2024 10:39-0500 Systolic blood pressure 141 mm[Hg] Luke Mitchel PA-C Work Phone: [employer]; [employer] Comment on above: Patient Position: Sitting; Cuff Location : Left Arm; Cuff Size: Standard Encounters Encounter Date Encounter Type Care Provider Facility Start: 01-03-2025 ambulatory Dorothy HILLMAN Facility:[facility] Start: 11-29-2024 End: 11-29-2024 Patient encounter procedure Dorothy HILLMAN -[facility] Work Phone: Start: 11-29-2024 End: 11-29-2024 ambulatory Luke Mitchel PA Work Phone: -[facility] Start: 08-23-2024 End: 08-23-[address] Nirmala Armenta MD -[facility] Work Phone: Start: 08-23-2024 End: 08-23-2024 ambulatory Washington Alasetler Facility:[facility] Start: 08-23-2024 ambulatory Luchristina Mitchel Facili ty:[facility] Start: 08-23-2024 Non-patient / Non-visit Dr. Ben Salter MD -[facility] Start: 08-23-2024 End: 08-23-[address] Nirmala Armenta MD -[facility] Work Phone: Start: 08-23-2024 End: 08-23-2024 ambulatory Washington Mitchel Facility:[facility] Start: 08-03-2024 End: 08-03-2024 Office outpatient visit 15 minutes Luke Mitchel PA-C Work Phone: [facility] Start: 07-30-2024 ambulatory WASHINGTON GRULLON [facility] Start: 07-05-2024 End: 07-05-2024 ambulatory NIRMALA ESTRELLA [facility] Start: 06-28-2024 End: 06-28-2024 Historical Summary Washington Grullon PA-C Work Phone: [facility] Start: 06-21-2024 End: 06-21-2024 ambulatory Washington Mitchel [facility] Start: 06-21-2024 End: 06-21-2024 ambulatory Washington Mitchel Facility:[facility] Start: 2024 End: 2024 Procedure Washington Alasetler PA-C Work Phone: [facility] Start: 2024 ambulatory [facility] Start: 05-18-2024 End: 05-18-2024 Office outpatient visit 15 minutes Luke Mitchel PA-C Work Phone: [facility] Start: 05-18-2024 Review Washington warner PA-C Work Phone: [facility] Start: 05-14-2024 End: 05-14-2024 ambulatory DEFINED NOT Facility:[facility] Start: 05-14-2024 End: 05-14-2024 ambulatory Nirmala Armenta Facility:[facility] Start: 05-10-2024 ambulatory Washington Grullon [facility]ili [place] Start: 05-10-2024 End: 05-10-2024 ambulatory Washington Grullon Facility:[facility] Start: 05-07-2024 End: 05-07-2024 Emergency department patient visit Dean Jara Facility:[facility] Start: 05-07-2024 ambulatory Saturnino HILLMAN Facility :[facility] Procedures Date Procedure Procedure Detail Performing Clinician Start: 06-28-2024 End: 06-28-2024 Removal sutures under anesthesia same surgeon Washington Grullon PA-C Work Phone: Start: 2024 End: 2024 Exc b9 lesion mrgn xcp sk tg s/n/h/f/g 0.5 cm/< Washington Grullon PA-C Work Phone: Start: 05-18-2024 End: 05-18-2024 No Known Past Surgical History Washington Grullon PA-C Work Phone: Plan of Treatment Date Care Activity Detail Author Start: 06-28-2024 Nursing evaluation o f patient and report Medical; Nurse visit - [facility] [facility] Start: 28-Jun-2024 08:00-05:00 NURSE, FLOAT Appointment Request [facility] Heart Views W str ess and W radionuclide IV [facility] Payers Date Payer Category Payer Self-pay 2024 Unknown [id number] 1965 Unknown [id number] 2.16.8 [id number] 1965 Unknown [id number] 2.16.8 [id number] Unknown 71 Unknown [id number] 2.16.8 40.1.687912.3.579.2.462 Unknown [id number] 2.16.8 40.1.080822.3.579.2.462 Unknown [id number] 2.16.8 40.1.253752.3.579.2.462 Unknown [id number] 2.16.8 40.1.702449.3.579.2.462 Unknown [id number] 2.16.8 40.1.805759.3.579.2.462 Unknown [id number] 2.16.8 40.1.242163.3.579.2.462 Unknown [id number] 2.16.8 40.1.464705.3.579.2.462 Unknown [id number] 2.16.8 40.1.630198.3.579.2.462 Unknown [id number] 2.16.8 40.1.061014.3.579.2.462 Unknown [id number] 2.16.8 40.1.805047.3.579.2.462 Unknown [id number] 2.16.8 40.1.037771.3.579.2.462 Unknown [id number] 2.16.8 40.1.073203.3.579.2.462 Unknown [id number] 2.16.8 [id number] Social History Date Type Detail Facility Start: 1965 Female [facility] Tobacco smoking consumption unknown [employer] Work Phone: Spouse [employer] [employer]; [employer] Start: [facility]14[facility]24 [facility] NEGATED: Highlighted row No Social History Information Available No Social History Information Available [employer]; [employer] Work Phone: Evaluation note 08-23-2024 Note Date & Type Note Facility 08-23-2024 Evaluation note Diagnosis Onset Date Resolution Congestive heart failure acute August 23, 2024 9:41am LBBB (left bundle branch block) acute August 23, 2024 9:41am Hypertension chronic August 23, 2024 9:41am Cardiomyopathy acute November 29, 2024 8:26am LBBB (left bundle branch block) acute November 29, 2024 8:26am Hypertension chronic November 29, 025 8:26am [facility] Work Phone: Reason for referral (narrative) Note Date & Type Note Facility Reason for referral (narrative) No reason for referral information available [facility] Work Phone: Family History No Family History Records Found Hypertension Status:Active Comments:Mother. Father. Hypothyroidism Status:Active Comments:Mother. Hypertension Status:Active Comments:Mother. Father. Hypothyroidism Status:Active Comments:Mother. Hypertension Status:Active Comments:Mother. Father. Hypothyroidism Status:Active Comments:Mother. Hypertension Status:Active Comments:Mother. Father. Hypothyroidism Status:Active Comments:Mother. Hypertension Status:Active Comments:Mother. Father. Hypothyroidism Status:Active Comments:Mother. Hypertension Status:Active Comments:Mother. Father. Hypothyroidism Status:Active Comments:Mother. Hypertension Status:Active Comments:Mother. Father. Hypothyroidism Status:Active Comments:Mother. Relationship Condition Age at Onset Recorded Date/T jose a father Myocardial infarction Unknown Hypertension Unknown grandmother Cardiac disease Unknown mother Hypertension Unknown Summary Purpose Advance Directives No Advanced Directives Records FoundNo Advanced Directives Records FoundNo Advanced Directives Records Found Chief Complaint and Reason for Visit Chief Complaint Admit Date LBBB, E-ORDER August 23, 2024 7:4 5am 2 M FU August 23, 2024 9:4 1am 3 M FU November 29, 2024 8:26 am Reason for Visit Admit Date Congestive heart failure August 23 9:41am LBBB (left bundle branch block) August 232024 9:41am Hypertension August 23, 2024 9:4 1am Cardiomyopathy November 29, 2024 8:26 am LBBB (left bundle branch block) October 8:26am Hypertension November 29, 2024 8:26 am Additional Source Comments INFORMATION SOURCE (unrecogn ized section and content) DATE CREATED AUTHOR 06/15/2024 [facility] DATE CREATED AUTHOR AUTHOR'S ORGANIZ ATION 07/30/2024 [facility] DATE CREATED AUTHOR AUTHOR'S ORGANIZ ATION 12/27/2024 [facility] Care Teams (unrecognized sec tion and content) Team Status: Active Member Role/Relationship Status Dates KADY Hoko Primary Care Provider Active Team Status: Inactive Member Role/Relationship Status Dates KADY Hook Primary Care Provider Active Start: August 23, 2024 End: August 23, 2024 Dr. Nirmala Armenta MD Attending Provider Active Start: August 23, 2024 End: August 23, 2024 Dr. Nirmala Armenta MD Referring Provider Active Start: August 23, 2024 End: August 23, 2024 Team Status: Active Member Role/Relationship Status Dates KADY Hook Primary Care Provider Active Start: August 23, 2024 Dr. Ben Salter MD Attending Provider Active S tart: August 23, 2024 Team Status: Inactive Member Role/Relationship Status Dates KADY Hook Primary Care Provider Active Start: August 23, 2024 End: August 23, 2024 KADY Hook Referring Provider Active Start: August 23, 2024 End: August 23, 2024 Dr. Nirmala Armenta MD Attending Provider Active Start: August 23, 2024 End: August 23, 2024 Team Status: Inactive Member Role/Relationship Status Dates KADY Hook Primary Care Provider Active Start: November 29, 2024 End: November 29, 2024 KADY Hook Referring Provider Active Start: November 29, 2024 End: November 29, 2024 Dorothy HILLMAN PA Attending Provider Active Start: November 29, 2024 End: November 29, 2024 Goals (unrecognized section and content) Goals may be documented in a n alternate section FOR RECORDS PERTAINING TO PATIENTS WHO ARE OR HAVE BEEN ENROLLED IN A CHEMICAL DEPENDENCY/SUBSTANCEABUSE PROGRAM, SOME INFORMATION MAY BE OMITTED. This clinical summary was aggregated from multiple sources. Caution should be exercised in using it in the provision of clinical care. This summary normalizes information from multiple sources, and as a consequence, information in this document may materially change the coding, format and clinical context of patient data. In addition, data may be omitted in some cases. CLINICAL DECISIONS SHOULD BE BASED ON THE PRIMARY CLINICAL RECORDS. [email or web address] [facility]. provides no warranty or guarantee of the accuracy or completeness of information in this document.
--- NOTE | 2025-01-03 12:16 | STRESSREP ---
Stress Test Report Date: 01/03/2025 Procedure: Pharmacologic stress nuclear imaging study Indications: Cardiomyopathy, left bundle branch block Consent: Per the patient Procedure: The patient underwent pharmacologic (Regadenoson) evaluation with a peak heart rate of 78 beats per minute (49%predicted maximal heart rate) and a peak blood pressure of 122/84 mmHg. The baseline ECG demonstrated normal sinus rhythm, nonspecific intraventricular conduction delay. EKG during lexiscan infusion revealed no significant change from baseline. EKG post infusion revealed no significant change from baseline [There were no cardiac dysrhythmias pretest, during pharmacologic infusion, or recovery]. [There was no complaint of chest discomfort during pharmacologic infusion or recovery]. The examination was discontinued secondary to completion of protocol. Impression: 1. Lexiscan stress test test is negative for Lexiscan infusion induced EKG changes of ischemia. 2. Lexiscan stress test test is negative for Lexiscan infusion induced chest pain. 3. Results of the nuclear portion of the test is as below Myocardial perfusion imaging study: Technique: The patient was injected with 14.7 millicuries of technetium 99m Cardiolite and subsequently rest SPECT Cardiolite nuclear imaging was obtained in the horizontal long, vertical long, and short axis views. The patient underwent pharmacologic [Regadenoson 0.4mg] evaluation. Please see above for details. The patient was injected with 44.9 millicuries of technetium 99m Cardiolite and subsequently stress SPECT Cardiolite nuclear imaging was obtained in the horizontal long, vertical long, and short axis views. A gated Cardiolite study at peak stress was obtained. Interpretation: Rest and stress SPECT Cardiolite nuclear imaging status post realignment, normalization, and attenuation correction demonstrate moderately decreased radioisotope uptake in the apex on the rest images that is worse on the stress images suggestive of prior apical myocardial infarction with mild lo-infarct ischemia. Gated images reveal hypokinesis of the septum and apex. The reported LVEF is 45%. Impression: 1. There is evidence of prior apical myocardial infarction with mild lo-infarct ischemia. 2. Estimated ejection fraction is 45%. This note was generated with [employer] software. It may contain incorrect words, spelling, and punctuation that were not noted in checking the note before signing.
== END 2025-01-03 23:59 | disposition home or self-care (01) ==
PROVIDERS: PCP Physician Assistant; Referring Provider Physician Assistant Medical; Visit Provider Physician Assistant Medical
DX: I42.9 Cardiomyopathy, unspecified (principal); I44.7 Left bundle-branch block, unspecified; I10 Essential (primary) hypertension
CPT/HCPCS: 78452; 93017; A9500; A4216; J2785